=== PATIENT | male | born 1930 | race African-American/Black ===

== ENCOUNTER 2017-03-03 14:52 | Inpatient (IN) ==
--- NOTE | 2017-03-03 16:05 | Emergency Department Note ---
Arrival - Arrival Chief Complaint: Chest Pain Stated Complaint: Alot of indigestion, belching ED Nursing Triage Note: Pt was sent from dialysis for chest pain - pt states that he was he was only able to complete half of his dialysis and was sent to ER Mode of Arrival: Ambulatory Limitations: No Limitations Source: Patient Time Seen by Provider: 03/03/17 15:42 - History of Present Illness HPI Narrative: Patient is a poor historian and is difficult to get a timeline from him. He is apparently been having difficulty swallowing for a few days now. The family states he has been belching a lot and using a lot of Tums. This apparently concerned him at dialysis and he was sent here for further evaluation. He states he only occasionally has a "twinge" of pain in his throat and upper chest. His real complaint is that he is having difficulty swallowing. He says he had the same problem prior to the neck surgery he had in September. On reviewing old chart, it appears he had a neck abscess that was resected at that time. He also had mediastinitis. He has no known history of esophageal stricture. No known history of coronary disease. Allergies/Adverse Reactions: Allergies Allergy/AdvReac Type Severity Reaction Status Date / Time No Known Allergies Allergy Unverified 09/28/16 17:28 Home Medications: Home Medications Medication Instructions Recorded Confirmed Type Montelukast Tab [Singulair Tab] 10 mg PO BEDTIME 09/14/16 03/03/17 History Albuterol/Ipratropium Neb [Duoneb] 3 ml RESP TX RT Q6H nebulization 11/10/16 Rx solution Carvedilol [Coreg] 3.125 mg PO BID tablet 11/10/16 03/03/17 Rx Polyethylene Glycol 3350 17 gm PO DAILY PRN 12/01/16 03/03/17 History [Smoothlax] Calcium Carbonate Chew [Tums] 1 tablet PO TID W/MEALS 02/06/17 03/03/17 History Ranitidine Tab [Zantac Tab] 150 mg PO TID 02/06/17 03/03/17 History Terbinafine Tab [LamISIL Tab] 250 mg PO BID 02/06/17 03/03/17 History Hydrocodone/Acetaminophen [[place] 1 each PO Q6H PRN #20 tablet 02/07/17 03/03/17 Rx 7.5-325 Tablet] Review of System - Review of System 12 point system: reviewed and no additional remarkable complaints except as stated - Review of System Constitutional: Absent: fever Head/Ears/Nose/Throat: Absent: nasal drainage, sore throat Respiratory: Absent: cough, respiratory distress, wheezing Cardiovascular: Present: chest pain. Absent: palpitations, dyspnea on exertion , orthopnea, edema Gastrointestinal: Present: other (Dysphagia). Absent: nausea, vomiting Medical,Surgical,& Family Hx - Medical History Cardio: History of: CHF, CAD, Hypertension (MEDICATION), PVD, Cardiovascular Problems Neurology: History of: Cerebrovascular Accident, Dementia HEENT: History of: Eye Problem (GLASSES), Dental Problems, HEENT Problems (Neck abscess) Endocrine: History of: Diabetes Mellitus (IDDM), Dyslipidemia Rheumatology: History of;: Gout Respiratory: History of: COPD Renal: History of: Dialysis (REPLACEMENT OF AV GRAFT), Renal Failure Gastrointestinal: History of: GERD Musculoskeletal: History of: Degenerative Disk Disease, Musculoskeletal Problems - Surgical History Cardiac Surgeries: Sugical HX of: Cardiac Catheterization HEENT Surgeries: Surgical HX of: Eye Surgery (cataract surgery left and right eye) Abdominal Surgeries: Surgical HX of: Colonoscopy, EGD Additional Surgical History: Resection of neck abscess - Family History Family History: Reports;: Family Diabetes, Family Heart Disease, Family Stroke - Social History Smoking Status: Never smoker Frequency of Alcohol Use: None Type of Drug Use: None Exam Physical Examination: GENERAL: Alert. No acute distress. HEENT: Normocephalic and atraumatic. There is no nasal drainage. No pharyngeal erythema or exudate. NECK: Normal inspection. Well-healed surgical scar on the left neck. No tenderness. Full range of motion. No adenopathy or mass appreciated. LUNGS: No respiratory distress. Clear to auscultation bilaterally, no wheezes, rales or rhonchi. HEART: Regular rate and rhythm. ABDOMEN: Soft, nontender and nondistended with normoactive bowel sounds. BACK: Normal inspection. SKIN: Color normal. Warm and dry. EXTREMITIES: Nontender. Normal range of motion. No pedal edema. NEUROLOGICAL/PSYCHIATRIC: Alert and oriented -3 with normal mood and affect. Cranial nerves normal. No motor or sensory deficit. Vital Signs: Vital Signs Temperature 98.1 F 03/03/17 16:19 Pulse Rate 89 03/03/17 16:19 Respiratory Rate 20 03/03/17 16:19 Blood Pressure 135/64 03/03/17 16:19 O2 Sat by Pulse Oximetry 99 03/03/17 15:11 Course - Reevaluation(s) Reevaluation #1: CT of the soft tissue of the neck shows osteomyelitis and worsening degeneration at the left sternoclavicular joint. There is no abscess or mass at this time. I think the osteomyelitis and inflammation are what is causing his pain and difficulty on swallowing. His troponin is slightly elevated, however, it has been elevated in the past as is commonly seen in dialysis patients. I have discussed the patient with the hospitalist service who will see him and admit. Time: 17:40 Results - Labs CBC & BMP: 03/03/17 16:19 03/03/17 16:19 Lab Results: I have reviewed the patients labs Labs: Laboratory Tests 03/03/17 16:19 Total Bilirubin 0.40 AST 19 ALT 12 L Alkaline Phosphatase 118 H Total Creatine Kinase 73 CK-MB (CK-2) 2.5 Troponin I 0.231 H - Impressions CT of the soft tissue the neck shows Marked improvement of the prior left neck abscess however there are worse sequela of osteomyelitis and joint infection at the left sternoclavicular joint. It is uncertain whether this is related to sequelae of chronic osteomyelitis or a persistent active osteomyelitis. Chest x-ray shows cardiomegaly. No CHF. Disposition Clinical Impression: Chest pain, Osteomyelitis, Dysphagia, ESRD (end stage renal disease) on dialysis Case discussed with: patient, patient's family Disposition: Still a Patient Condition: Stable Time of Disposition: 17:43
[2017-03-03 16:21] LABS: Basophils # 0.1 10*3/uL (0.0-0.2); Basophils % 1.1 % (0.0-0.8); Eosinophils # 0.1 10*3/uL (0.0-0.87); Eosinophils % 1.8 % (0.00-10.9); Hematocrit 38.6 VOL% (42.0-52.0); Hemoglobin 12.3 GM/DL (14.0-18.0); Immature Granulocytes % 0.2 %; Immature Granulocytes Absolute 0.01 #; Lymphocytes # 1.6 10*3/uL (1.4-4.0); Lymphocytes % 29.8 % (21.2-54.2); Mean Corpuscular HGB Conc 31.9 GM/DL (32-36); Mean Corpuscular Hemoglobin 32 PG (27-34); Mean Corpuscular Volume 100.5 FL (87-102); Mean Platelet Volume 11.4 FL (9.6-12.0); Monocytes # 0.8 10*3/uL (0.11-0.8); Monocytes % 15.2 % (1.7-12.7); Neutrophils # 2.8 10*3/uL (1.4-7.4); Neutrophils % 51.9 % (38.7-73.9); Platelet Count 189 T/CUMM (130-400); Red Blood Count 3.84 MC/CUMM (3.8-5.5); Red Cell Distribution Width 16.2 % (9.3-17.3); White Blood Count 5.5 T/CUMM (4-12)
--- NOTE | 2017-03-03 16:42 | XRay Report ---
History is chest pain Comparison 12/12/2016 The heart is enlarged. Mediastinal contour is unchanged No new infiltrates are seen Impression: Cardiomegaly without CHF PROCEDURE INTERPRETED AT [facility] DEPARTMENT OF RADIOLOGY Final Report Signed by: Dr. Faustina Ho
[2017-03-03 16:55] LABS: Alanine Aminotransferase 12 U/L (16-61); Albumin 3.4 G/DL (3.4-5.0); Alkaline Phosphatase 118 U/L (45-117); Aspartate Amino Transferase 19 U/L (0-37); Blood Urea Nitrogen 15 MG/DL (7-18); Calcium 9.4 MG/DL (8.5-10.1); Glucose 180 MG/DL (74-106); Osmolality,Calculated 282.5 MOS/KG (273-304); Potassium 3.9 MMOL/L (3.5-5.1); Sodium 139 MMOL/L (136-145); Total Protein 7.2 G/DL (6.4-8.3)
[2017-03-03 16:56] LABS: Troponin I Only 0.231 NG/ML (0.00-0.045)
--- NOTE | 2017-03-03 17:07 | CT Report ---
History is dysphasia prior neck abscess 80 cc Omni 350 utilized Comparison 11/05/2016 There is been marked improvement of prior left neck abscess. There remains soft tissue thickening and stranding surrounding fat at sternoclavicular joint on the left where there is also displacement of sternal clavicular joint with erosions and sclerosis and fragmentation on both sides of the joint which is worse than on the prior study. No enlarged cervical nodes seen. Tiny thyroid cysts present. Impression: 1. Marked improvement of the prior left neck abscess however there are worse sequela of osteomyelitis and joint infection at the left sternoclavicular joint. It is uncertain whether this is related to sequelae of chronic osteomyelitis or a persistent active osteomyelitis. The CT exam was performed using one or more of the following dose reduction techniques: Automated exposure control, adjustment of the mA and/or kV according to patient size, or use of iterative reconstruction technique. PROCEDURE INTERPRETED AT [facility] DEPARTMENT OF RADIOLOGY Final Report Signed by: Dr. Faustina Ho
[2017-03-03 18:59] LABS: PT Patient Result 11.1 SECS
[2017-03-03 19:08] LABS: Partial Thromboplastin Time 44.8 SECS (0-40)
--- NOTE | 2017-03-03 19:47 | Hospitalist History & Physical ---
Assessment and Plan (1) Osteomyelitis Status: Acute Assessment and plan: Previous history of abscess CT neck with improvement of abscess but with acute vs chronic osteo Pt hemodynamically stable, afebrile with no leukocytosis Will not start antibiotics tonight Consult Dr. Harrison Obtain ESR, CRP and blood cultures Low threshold for initiation of antibiotics, but would like for surgery to evaluate first Current Visit: Yes (2) ESRD (end stage renal disease) on dialysis Status: Chronic Assessment and plan: TTS schedule Consult nephrology Current Visit: Yes (3) Diabetes mellitus Status: Chronic Assessment and plan: SSI for now Current Visit: No Qualifiers: Diabetes mellitus type: type 2 Diabetes mellitus complication status: with kidney complications Diabetes mellitus complication detail: with chronic kidney disease Chronic kidney disease stage: stage 5, not on chronic dialysis History of Present Illness Chief complaint: throat problems History of present illness: Mr. Carlson is a 86 year old male with ESRD and recent hx of left neck abscess s /p I&D 11/07/16 who presents with throat problems. Patient is a poor historian, his son is present and provides some of the history. The patient denies throat pain or difficulty swallowing to me. His son reports that patient has been belching a great deal and having problems swallowing his Tums. Today in HD, patient noted to have excessive belching and was sent here. He only completed half of his HD session. In the ED, CT neck with acute vs chronic osteomyelitis of the left sternoclavicular joint with marked improvement of the prior left neck abscess. He denies fever or chills. He is being admitted to the hospitalist service for further evaluation. Home Medications Medication Instructions Recorded Confirmed Type Montelukast Tab [Singulair Tab] 10 mg PO BEDTIME 09/14/16 03/03/17 History Albuterol/Ipratropium Neb [Duoneb] 3 ml RESP TX RT Q6H nebulization 11/10/16 Rx solution Carvedilol [Coreg] 3.125 mg PO BID tablet 11/10/16 03/03/17 Rx Polyethylene Glycol 3350 17 gm PO DAILY PRN 12/01/16 03/03/17 History [Smoothlax] Calcium Carbonate Chew [Tums] 1 tablet PO TID W/MEALS 02/06/17 03/03/17 History Ranitidine Tab [Zantac Tab] 150 mg PO TID 02/06/17 03/03/17 History Terbinafine Tab [LamISIL Tab] 250 mg PO BID 02/06/17 03/03/17 History Hydrocodone/Acetaminophen [[place] 1 each PO Q6H PRN #20 tablet 02/07/17 03/03/17 Rx 7.5-325 Tablet] Allergies Allergy/AdvReac Type Severity Reaction Status Date / Time No Known Allergies Allergy Unverified 09/28/16 17:28 Medical,Surgical,& Family Hx - Medical History Cardio: History of: CHF, CAD, Hypertension (MEDICATION), PVD, Cardiovascular Problems Neurology: History of: Cerebrovascular Accident, Dementia No history of: Seizures HEENT: History of: Eye Problem (GLASSES), Dental Problems, HEENT Problems (Neck abscess) Endocrine: History of: Diabetes Mellitus (IDDM), Dyslipidemia Rheumatology: History of;: Gout Respiratory: History of: COPD Renal: History of: Dialysis (REPLACEMENT OF AV GRAFT), Renal Failure Gastrointestinal: History of: GERD Musculoskeletal: History of: Degenerative Disk Disease, Musculoskeletal Problems - Surgical History Cardiac Surgeries: Sugical HX of: Cardiac Catheterization HEENT Surgeries: Surgical HX of: Eye Surgery (cataract surgery left and right eye) Abdominal Surgeries: Surgical HX of: Colonoscopy, EGD - Family History Family History: Reports;: Family Diabetes, Family Heart Disease, Family Stroke - Social History Smoking Status: Never smoker Frequency of Alcohol Use: None Type of Drug Use: None - Constitutional Constitutional: Absent: chills, fever(s) - EENT Eyes: Absent: blurry vision, loss of vision Ears: Absent: decreased hearing, ear pain Nose, mouth and throat: Absent: hoarseness, throat swelling - Cardiovascular Cardiovascular: Absent: chest pain at rest, dyspnea - Respiratory Respiratory: Absent: cough, wheezing - Gastrointestinal Gastrointestinal: Absent: abdominal pain, nausea - Genitourinary Genitourinary: Absent: difficulty urinating, urinary frequency - Musculoskeletal Musculoskeletal: Absent: joint swelling, muscle cramps - Neurological Neurological: Absent: dizziness, focal weakness - Psychiatric Psychiatric: Absent: anxiety, depression - Endocrine Endocrine: Absent: cold intolerance, heat intolerance - Hematologic/Lymphatic Hematologic/Lymphatic: Absent: easy bleeding, easy bruising Exam - Constitutional Vitals: Period Temp Pulse Resp BP Sys/[place] Pulse Ox Last 24 Hr 98.1 F-98.1 F 77-89 18-20 135-149/64-72 99-100 General appearance: normal weight - Head Head exam: Present: normocephalic, atraumatic - Eye Eye exam: Present: EOMI Pupils: Present: LOPEZ - ENT ENT exam: Present: normal exam - Neck Neck exam: Present: normal inspection. Absent: tenderness - Respiratory Respiratory exam: Present: clear to auscultation bilaterally. Absent: rhonchi, wheezes - Cardiovascular Cardiovascular exam: Present: regular rate and rhythm - GI/Abdominal GI/Abdominal exam: Present: normal bowel sounds, soft. Absent: tenderness, rebound - Extremities Exam Extremities exam: Present: normal inspection - Back Exam Back exam: Present: normal inspection - Neurological Exam Neurological exam: Present: alert, oriented X3 - Psychiatric Psychiatric exam: Present: normal affect, normal mood - Skin Skin exam: Present: warm, intact Results - Labs CBC & BMP: 03/03/17 16:19 03/03/17 16:19
[2017-03-03] MEDS ORDERED: GLUCAGON 1 MG VIAL IM PRN (20:13)
[2017-03-03] MEDS ORDERED: POLYETHYLENE GLYCOL POWDER 255 GM BOTTLE PO PRN (20:13)
[2017-03-03] MEDS ORDERED: ACETAMINOPHEN 325 MG TABLET PO PRN (20:13)
[2017-03-03] MEDS ORDERED: DEXTROSE 50% 25 GM/50 ML VIAL IV PRN (20:13)
[2017-03-03] MEDS ORDERED: LACTULOSE 20 GM/30 ML UDCUP PO PRN (20:13)
[2017-03-03] MEDS ORDERED: DOCUSATE SODIUM 100 MG CAPSULE PO PRN (20:13)
[2017-03-03] MEDS ORDERED: POLYETHYLENE GLYCOL POWDER 17 GM PACK PO PRN (20:30)
[2017-03-03] MEDS: ENOXAPARIN 30 MG/0.3 ML SYRINGE SUBCUT SCH (21:11)
[2017-03-03] MEDS: INSULIN LISPRO 100 UNIT/ML SUBCUT SCH (21:11)
[2017-03-03] MEDS: SODIUM CHLORIDE 0.9% 1,000 ML IV SCH (21:14)
[2017-03-03] MEDS: MONTELUKAST 10 MG TABLET PO SCH (21:15)
[2017-03-03] MEDS: CARVEDILOL 3.125 MG TABLET PO SCH (21:15)
[2017-03-04 00:47] LABS: Basophils % 1.1 % (0.0-0.8); Eosinophils # 0.1 10*3/uL (0.0-0.87); Eosinophils % 2.4 % (0.00-10.9); Hematocrit 32.9 VOL% (42.0-52.0); Hemoglobin 10.8 GM/DL (14.0-18.0); Immature Granulocytes % 0.5 %; Immature Granulocytes Absolute 0.02 #; Lymphocytes # 1.4 10*3/uL (1.4-4.0); Lymphocytes % 35.9 % (21.2-54.2); Mean Corpuscular HGB Conc 32.8 GM/DL (32-36); Mean Corpuscular Hemoglobin 32 PG (27-34); Mean Corpuscular Volume 97.9 FL (87-102); Mean Platelet Volume 11.3 FL (9.6-12.0); Monocytes # 0.7 10*3/uL (0.11-0.8); Monocytes % 18.4 % (1.7-12.7); Neutrophils # 1.6 10*3/uL (1.4-7.4); Neutrophils % 41.7 % (38.7-73.9); Platelet Count 169 T/CUMM (130-400); Red Blood Count 3.36 MC/CUMM (3.8-5.5); Red Cell Distribution Width 15.9 % (9.3-17.3); White Blood Count 3.8 T/CUMM (4-12)
[2017-03-04 02:13] LABS: Eosinophils 4 % (0-10); Lymphocytes 31 % (20-55); Platelet Estimate Normal; Segmented Neutrophils 45 % (50-85); Total Cells Counted 100
[2017-03-04 06:16] LABS: Basophils % 1.1 % (0.0-0.8); Eosinophils # 0.1 10*3/uL (0.0-0.87); Eosinophils % 2.6 % (0.00-10.9); Hematocrit 33.6 VOL% (42.0-52.0); Hemoglobin 10.9 GM/DL (14.0-18.0); Lymphocytes # 1.3 10*3/uL (1.4-4.0); Lymphocytes % 35.8 % (21.2-54.2); Mean Corpuscular HGB Conc 32.4 GM/DL (32-36); Mean Corpuscular Hemoglobin 32 PG (27-34); Mean Corpuscular Volume 98.2 FL (87-102); Mean Platelet Volume 10.9 FL (9.6-12.0); Monocytes # 0.5 10*3/uL (0.11-0.8); Monocytes % 14.6 % (1.7-12.7); Neutrophils # 1.6 10*3/uL (1.4-7.4); Neutrophils % 45.9 % (38.7-73.9); Platelet Count 167 T/CUMM (130-400); Red Blood Count 3.42 MC/CUMM (3.8-5.5); Red Cell Distribution Width 16.4 % (9.3-17.3); White Blood Count 3.5 T/CUMM (4-12)
[2017-03-04] MEDS: SODIUM CHLORIDE 0.9% 1,000 ML IV SCH (06:55)
[2017-03-04] MEDS: ALBUTEROL/IPRATROPIUM 3 ML NEB RESP TX SCH ×4 (07:07→19:37)
[2017-03-04 07:11] LABS: Blood Urea Nitrogen 17 MG/DL (7-18); Calcium 8.8 MG/DL (8.5-10.1); Glucose 134 MG/DL (74-106); Osmolality,Calculated 282.4 MOS/KG (273-304); Potassium 3.8 MMOL/L (3.5-5.1); Sodium 140 MMOL/L (136-145)
[2017-03-04 07:55] LABS: Sedimentation Rate-Westergren 42 MM/HR (0-20)
[2017-03-04] MEDS: INSULIN LISPRO 100 UNIT/ML SUBCUT SCH ×4 (09:06→20:28)
[2017-03-04] MEDS: CARVEDILOL 3.125 MG TABLET PO SCH ×2 (09:07→20:26)
[2017-03-04] MEDS: PANTOPRAZOLE 40 MG TABLET PO SCH (09:07)
[2017-03-04] MEDS ORDERED: VANCOMYCIN INJ 750 MG in SODIUM CHLORIDE 0.9% 250 ML IV PRN (09:42)
--- NOTE | 2017-03-04 09:47 | EKG Report ---
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
[2017-03-04] MEDS ORDERED: VANCOMYCIN INJ 1,000 MG in SODIUM CHLORIDE 0.9% 250 ML IV ONE (10:00)
--- NOTE | 2017-03-04 10:35 | Nephrology Consult Note ---
History of Present Illness Chief complaint: End-stage renal disease in a patient admitted with dysphasia History of present illness: Mr. Carlson is a 86 year old male with end-stage renal disease who dialyzes on a regular basis and [place]. The patient was admitted for evaluation of dysphasia. Apparently the patient was dialyzing recently when he became choked up and had difficulty breathing. The patient states he has had some trouble swallowing food and liquids the past couple of weeks. The patient recently had a fistula/graft placed in his left arm about 3 weeks ago the patient did have to be put to sleep for this. The patient has a history of a neck abscess in the past that had to be incised and drained and left open for several weeks. The patient had a CT scan done yesterday that revealed some changes consistent with osteomyelitis changes. The patient denies any fever or chills. He denies any pain. ROS: Head - denies headaches ENT - denies sore throat Lymphatics - denies lymphadenopathy Hematology - denies bleeding problems Heart - denies chest pain Lungs - denies shortness of breath Abdomen - denies abdominal pain Musculoskeletal - denies arthritis Skin - denies rash Neurology - denies stroke General - denies fever PE: General: in no acute distress Eyes: Pupils are round and reactive, conjunctivae are clear ENT: Nose is clear, O/P is benign Neck: Supple, no thyromegaly Lymphatics: No cervical, supraclavicular or axillary adenopathy Heart: Regular rate and rhythm, no edema Lungs: Clear to auscultation anteriorly, chest expansion symmetric Abdomen: Soft, normoactive bowel sounds, no hepatomegaly Musculoskeletal: No joint erythema or effusions or joint asymmetry Skin: Normal turgor, normal hydration, no rash Neuro/Psych: Alert and cooperative with fair insight Home Medications Medication Instructions Recorded Confirmed Type Montelukast Tab [Singulair Tab] 10 mg PO BEDTIME 09/14/16 03/03/17 History Albuterol/Ipratropium Neb [Duoneb] 3 ml RESP TX RT Q6H nebulization 11/10/16 Rx solution Carvedilol [Coreg] 3.125 mg PO BID tablet 11/10/16 03/03/17 Rx Polyethylene Glycol 3350 17 gm PO DAILY PRN 12/01/16 03/03/17 History [Smoothlax] Calcium Carbonate Chew [Tums] 1 tablet PO TID W/MEALS 02/06/17 03/03/17 History Ranitidine Tab [Zantac Tab] 150 mg PO TID 02/06/17 03/03/17 History Terbinafine Tab [LamISIL Tab] 250 mg PO BID 02/06/17 03/03/17 History Hydrocodone/Acetaminophen [[place] 1 each PO Q6H PRN #20 tablet 02/07/17 03/03/17 Rx 7.5-325 Tablet] Allergies Allergy/AdvReac Type Severity Reaction Status Date / Time No Known Allergies Allergy Unverified 09/28/16 17:28 Medical,Surgical,& Family Hx - Medical History Cardio: History of: CHF, CAD, Hypertension (MEDICATION), PVD, Cardiovascular Problems Neurology: History of: Cerebrovascular Accident, Dementia No history of: Seizures HEENT: History of: Eye Problem (GLASSES), Dental Problems, HEENT Problems (Neck abscess) Endocrine: History of: Diabetes Mellitus (IDDM), Dyslipidemia Rheumatology: History of;: Gout Respiratory: History of: COPD Renal: History of: Dialysis (REPLACEMENT OF AV GRAFT), Renal Failure Gastrointestinal: History of: GERD Musculoskeletal: History of: Degenerative Disk Disease, Musculoskeletal Problems - Surgical History Cardiac Surgeries: Sugical HX of: Cardiac Catheterization HEENT Surgeries: Surgical HX of: Eye Surgery (cataract surgery left and right eye) Abdominal Surgeries: Surgical HX of: Colonoscopy, EGD - Family History Family History: Reports;: Family Diabetes, Family Heart Disease, Family Stroke - Social History Smoking Status: Never smoker Frequency of Alcohol Use: None Type of Drug Use: None Exam - Vital Signs Vital signs: Period Temp Pulse Resp BP Sys/[place] Pulse Ox Last 24 Hr 97.3 F-98.1 F 69-108 16-20 104-150/48-77 92-100 Results - Labs CBC & BMP: 03/04/17 05:58 03/04/17 05:58 Assessment and Plan (1) Dysphagia Status: Acute Assessment and plan: Patient has developed some swallowing difficulty in the past couple of weeks as well as some choking. Most recently had this happen during his dialysis treatment. The patient did have a recent endotracheal intubation about 3 weeks ago for a graft placement in his left arm. I think it would be appropriate to involve ENT and probably gastrointestinal medicine as well. Current Visit: Yes (2) ESRD (end stage renal disease) on dialysis Status: Chronic Assessment and plan: We will plan on continued HD support Current Visit: Yes (3) Anemia Status: Acute Assessment and plan: Patient's hematocrit stable around 33% Current Visit: No (4) Diabetes mellitus with ESRD (end-stage renal disease) Problem details: Uremic symptoms of asterixis. Status: Acute Assessment and plan: I am going to start him on a D10W at 50 cc an hour to give him some caloric input. Patient has been unable to take in very much lately due to his dysphasia. Current Visit: No
[2017-03-04] MEDS: DEXTROSE 10% 1,000 ML IV SCH (12:33)
--- NOTE | 2017-03-04 14:36 | Hospitalist Progress Note ---
Assessment and Plan - Time spent with patient Time spent with patient: Greater than 30 minutes (1) Dysphagia Status: Acute Assessment and plan: Consult GI. Current Visit: Yes (2) Osteomyelitis Status: Acute Assessment and plan: Start vancomycin given his prior abscess was MRSA. Consult infectious disease. Blood cultures pending. Current Visit: Yes (3) ESRD (end stage renal disease) on dialysis Status: Chronic Assessment and plan: Nephrology involved. Current Visit: Yes (4) Diabetes mellitus with ESRD (end-stage renal disease) Problem details: Uremic symptoms of asterixis. Status: Acute Assessment and plan: Continue current management. Current Visit: No Hospitalist: Subjective Interval history: Mr. Carlson reports no problems to me. Apparently he was admitted for dysphasia. CT of his chest revealed osteomyelitis. No overnight events. Exam - Constitutional Vitals: Period Temp Pulse Resp BP Sys/[place] Pulse Ox Last 24 Hr 97.3 F-98.1 F 64-108 16-20 104-150/48-77 92-100 General appearance: no acute distress - Head Head exam: Present: normocephalic, atraumatic - Eye Eye exam: Present: EOMI Pupils: Present: LOPEZ - ENT ENT exam: Present: normal exam - Neck Neck exam: Present: normal inspection - Respiratory Respiratory exam: Present: clear to auscultation bilaterally. Absent: rhonchi, wheezes - Cardiovascular Cardiovascular exam: Present: regular rate and rhythm. Absent: gallop, rubs, systolic murmur - GI/Abdominal GI/Abdominal exam: Present: normal bowel sounds, soft. Absent: distended, firm , guarding, tenderness, rebound - Extremities Exam Extremities exam: Present: normal inspection. Absent: calf tenderness, edema Results - Labs CBC & BMP: 03/04/17 05:58 03/04/17 05:58 Lab Results: I have reviewed the past 24 hour labs
[2017-03-04] MEDS ORDERED: VANCOMYCIN INJ 500 MG in SODIUM CHLORIDE 0.9% 100 ML IV PRN (16:00)
[2017-03-04] MEDS: MONTELUKAST 10 MG TABLET PO SCH (20:26)
[2017-03-04] MEDS: ENOXAPARIN 30 MG/0.3 ML SYRINGE SUBCUT SCH (20:29)
[2017-03-05] MEDS: ALBUTEROL/IPRATROPIUM 3 ML NEB RESP TX SCH ×4 (00:34→20:53)
[2017-03-05 06:30] LABS: Basophils % 1.1 % (0.0-0.8); Eosinophils # 0.1 10*3/uL (0.0-0.87); Eosinophils % 3.2 % (0.00-10.9); Hematocrit 34.3 VOL% (42.0-52.0); Immature Granulocytes % 0.3 %; Immature Granulocytes Absolute 0.01 #; Lymphocytes # 1.4 10*3/uL (1.4-4.0); Lymphocytes % 37.5 % (21.2-54.2); Mean Corpuscular HGB Conc 32.1 GM/DL (32-36); Mean Corpuscular Hemoglobin 32 PG (27-34); Mean Corpuscular Volume 99.7 FL (87-102); Mean Platelet Volume 11.3 FL (9.6-12.0); Monocytes # 0.6 10*3/uL (0.11-0.8); Monocytes % 15.3 % (1.7-12.7); Neutrophils # 1.6 10*3/uL (1.4-7.4); Neutrophils % 42.6 % (38.7-73.9); Platelet Count 170 T/CUMM (130-400); Red Blood Count 3.44 MC/CUMM (3.8-5.5); Red Cell Distribution Width 16.4 % (9.3-17.3); White Blood Count 3.8 T/CUMM (4-12)
[2017-03-05 06:58] LABS: Calcium 8.4 MG/DL (8.5-10.1); Osmolality,Calculated 280.7 MOS/KG (273-304); Potassium 3.6 MMOL/L (3.5-5.1)
--- NOTE | 2017-03-05 08:04 | Consultation ---
Assessment and Plan - Time spent with patient Time spent with patient: Less than 30 minutes (1) Dysphagia Status: Acute Assessment and plan: Bedside laryngoscopy reveals no masses or lesions and a slow nonforceful swallow a bedside fees was not performed that did not have the capability at that time but based on his history of a prolonged period of not eating because of the PEG tube and his prolonged hospitalization along with having a neck procedure is most likely a coordination a musculoskeletal issue in which case swallow therapy with e-stim should help improve or resolve the majority if not all of his dysphagia. I will consult speech and swallow therapy and have them began treatment on him. Thank you very much for this consult I will follow this patient intermittently throughout his stay I will be gone later today and tomorrow but will be back Sunday if there is any questions or concerns please do not hesitate to ask additionally Dr. Issa will be covering me while I am gone Current Visit: No Qualifiers: Dysphagia type: oropharyngeal phase Qualified Code(s): R13.12 - Dysphagia, oropharyngeal phase (2) Reflux laryngitis Status: Acute Current Visit: Yes History of Present Illness - Data of Consult Patient: new to practice Consult date: 03/05/17 Requesting Physician: Marty Smyth - Consult Narrative Reason for consult: Dysphasia History of present illness: Mr. Carlson is a 86 year old male with multiple medical comorbidities and current currently being treated for his end-stage renal disease he had previously been and admitted for a extended period of time where he had a neck abscess with mediastinitis that a joint case with Dr. Heribreto Montero and I performed where the sternocleidomastoid was removed and multiple irrigations and secondary wound healing of his neck. At that time he had a PEG tube subsequently this is been removed and he has had more more difficulty with swallowing and ENT is consulted to evaluate. He notes difficulty with swallowing with several different foods and drinks nothing seems to make it better or worse CC: Radha Elizabeth MD - Home Medications and Allergies Home Medications: Home Medications Medication Instructions Recorded Confirmed Type Montelukast Tab [Singulair Tab] 10 mg PO BEDTIME 09/14/16 03/03/17 History Albuterol/Ipratropium Neb [Duoneb] 3 ml RESP TX RT Q6H nebulization 11/10/16 Rx solution Carvedilol [Coreg] 3.125 mg PO BID tablet 11/10/16 03/03/17 Rx Polyethylene Glycol 3350 17 gm PO DAILY PRN 12/01/16 03/03/17 History [Smoothlax] Calcium Carbonate Chew [Tums] 1 tablet PO TID W/MEALS 02/06/17 03/03/17 History Ranitidine Tab [Zantac Tab] 150 mg PO TID 02/06/17 03/03/17 History Terbinafine Tab [LamISIL Tab] 250 mg PO BID 02/06/17 03/03/17 History Hydrocodone/Acetaminophen [[place] 1 each PO Q6H PRN #20 tablet 02/07/17 03/03/17 Rx 7.5-325 Tablet] Allergies/Adverse Reactions: Allergies Allergy/AdvReac Type Severity Reaction Status Date / Time No Known Allergies Allergy Unverified 09/28/16 17:28 12 point system: reviewed and no additional remarkable complaints except as stated Medical,Surgical,& Family Hx - Medical History Cardio: History of: CHF, CAD, Hypertension (MEDICATION), PVD, Cardiovascular Problems Neurology: History of: Cerebrovascular Accident, Dementia No history of: Seizures HEENT: History of: Eye Problem (GLASSES), Dental Problems, HEENT Problems (Neck abscess) Endocrine: History of: Diabetes Mellitus (IDDM), Dyslipidemia Rheumatology: History of;: Gout Respiratory: History of: COPD Renal: History of: Dialysis (REPLACEMENT OF AV GRAFT), Renal Failure Gastrointestinal: History of: GERD Musculoskeletal: History of: Degenerative Disk Disease, Musculoskeletal Problems - Surgical History Cardiac Surgeries: Sugical HX of: Cardiac Catheterization HEENT Surgeries: Surgical HX of: Eye Surgery (cataract surgery left and right eye) Abdominal Surgeries: Surgical HX of: Colonoscopy, EGD - Family History Family History: Reports;: Family Diabetes, Family Heart Disease, Family Stroke - Social History Smoking Status: Never smoker Frequency of Alcohol Use: None Type of Drug Use: None Exam - Constitutional Vitals: Period Temp Pulse Resp BP Sys/[place] Pulse Ox Last 24 Hr 97.4 F-98.8 F 56-92 16-19 115-144/58-69 92-100 General appearance: normal weight, no acute distress - Head Head exam: Present: normal inspection, normocephalic - Eye Eye exam: Present: EOMI Pupils: Present: LOPEZ - ENT ENT exam: Present: normal exam, normal external ear exam, normal oropharynx, other (Bedside laryngoscopy performed revealing a normally functioning larynx with some interarytenoid edema consistent with probable reflux disease.) - Neck Neck exam: Present: other (Well-healing neck incision from previous neck abscess incision and drainage with removal of SCM.) - Respiratory Respiratory exam: Present: other (No shortness of breath or difficulty breathing ) - GI/Abdominal GI/Abdominal exam: Present: soft (No PEG tube present per nursing staff) - Neurological Exam Neurological exam: Present: alert, oriented X3, CN II-XII intact - Psychiatric Psychiatric exam: Present: normal affect, normal mood - Skin Skin exam: Present: normal color, warm Results - Labs CBC & BMP: 03/05/17 04:31 03/05/17 04:31 Lab Results: I have reviewed the past 24 hour labs
[2017-03-05] MEDS: DEXTROSE 10% 1,000 ML IV SCH ×2 (08:09→11:45)
[2017-03-05] MEDS: CARVEDILOL 3.125 MG TABLET PO SCH ×2 (08:15→21:52)
[2017-03-05] MEDS: PANTOPRAZOLE 40 MG TABLET PO SCH (08:16)
[2017-03-05] MEDS: INSULIN LISPRO 100 UNIT/ML SUBCUT SCH ×4 (08:18→21:45)
--- NOTE | 2017-03-05 10:51 | Hospitalist Progress Note ---
Assessment and Plan - Time spent with patient Time spent with patient: Greater than 30 minutes (1) Dysphagia Status: Acute Assessment and plan: Gi consult pending. Evaluated by ENT. Current Visit: Yes (2) Osteomyelitis Status: Acute Assessment and plan: Continue vancomycin; prior abscess was MRSA. Consult infectious disease. Blood cultures pending. Current Visit: Yes (3) ESRD (end stage renal disease) on dialysis Status: Chronic Assessment and plan: Nephrology involved. Current Visit: Yes (4) Diabetes mellitus with ESRD (end-stage renal disease) Problem details: Uremic symptoms of asterixis. Status: Acute Assessment and plan: Continue current management. Current Visit: No Hospitalist: Subjective Interval history: No complaints or overnight events. Exam - Constitutional Vitals: Period Temp Pulse Resp BP Sys/[place] Pulse Ox Last 24 Hr 97.4 F-98.8 F 56-92 16-19 115-144/58-69 92-100 General appearance: no acute distress - Head Head exam: Present: normocephalic, atraumatic - Eye Eye exam: Present: EOMI Pupils: Present: LOPEZ - ENT ENT exam: Present: normal exam - Neck Neck exam: Present: normal inspection - Respiratory Respiratory exam: Present: clear to auscultation bilaterally. Absent: rhonchi, wheezes - Cardiovascular Cardiovascular exam: Present: regular rate and rhythm. Absent: gallop, rubs, systolic murmur - GI/Abdominal GI/Abdominal exam: Present: normal bowel sounds, soft. Absent: distended, firm , guarding, tenderness, rebound - Extremities Exam Extremities exam: Present: normal inspection. Absent: calf tenderness, edema Results - Labs CBC & BMP: 03/05/17 04:31 03/05/17 04:31 Lab Results: I have reviewed the past 24 hour labs
--- NOTE | 2017-03-05 12:26 | Gastrointestinal Consult Note ---
Assessment and Plan (1) Dysphagia Status: Acute Assessment and plan: 12-Hx of dysphagia following neck abscess and PEG tube placement in Sep this year. PEG removed and pt now with returning dysphagia to solids, pills, and liquids, reported failed ST evaluation, report still pending.. 30 pd wt loss x 4 months. Laryngoscopy w/o findings of masses/lesions. Plan and addendum to follow by Dr Tavares. Current Visit: Yes History of Present Illness Chief complaint: Dysphagia History of present illness: Mr. Carlson is a 86 year old male who was admitted to the hospital 2 days ago with complaints of difficulty swallowing. Patient is a poor historian and family at bedside is unable to provide detailed information. Information is also obtained from chart review. Patient has a history of diabetes mellitus, end-stage renal disease (dialyzed on Sunday, , Sunday), and osteomyelitis as diagnosed by neck CT. Patient has a history of protracted inpatient stay and September of this year after admission for dysphagia and abdominal pain as well as development of left neck abscess in which he underwent an I&D at that time as well as resection of the sternal head and debridement of necrotizing fasciitis. During that hospital stay, he had a PEG tube placed for continued dysphagia which also had to be replaced again in October after the PEG tube was pulled out. Following this discharge, patient had inpatient stay at [facility] for continued rehab and was discharged home. Patient states is returning home, he was initially doing better and able to have the PEG tube removed and resume eating. Pt is noted since discharge in Oct to have lost 30 pounds. He states that when he eats, the food becomes stuck in the back of his throat and he has to regurgitate to dislodge this. He denies any pain with swallowing. He states that he has difficulty with pills and solids as well as liquids at times. He denies any abdominal pain. Denies any melena or hematochezia. Denies any fever or chills. ENT has been consulted and bedside laryngoscopy without findings of masses or lesions with recommendations of ST with e-stim. ST eval report is still pending at this time. Home Medications Medication Instructions Recorded Confirmed Type Montelukast Tab [Singulair Tab] 10 mg PO BEDTIME 09/14/16 03/03/17 History Albuterol/Ipratropium Neb [Duoneb] 3 ml RESP TX RT Q6H nebulization 11/10/16 Rx solution Carvedilol [Coreg] 3.125 mg PO BID tablet 11/10/16 03/03/17 Rx Polyethylene Glycol 3350 17 gm PO DAILY PRN 12/01/16 03/03/17 History [Smoothlax] Calcium Carbonate Chew [Tums] 1 tablet PO TID W/MEALS 02/06/17 03/03/17 History Ranitidine Tab [Zantac Tab] 150 mg PO TID 02/06/17 03/03/17 History Terbinafine Tab [LamISIL Tab] 250 mg PO BID 02/06/17 03/03/17 History Hydrocodone/Acetaminophen [[place] 1 each PO Q6H PRN #20 tablet 02/07/17 03/03/17 Rx 7.5-325 Tablet] Allergies Allergy/AdvReac Type Severity Reaction Status Date / Time No Known Allergies Allergy Unverified 09/28/16 17:28 Medical,Surgical,& Family Hx - Medical History Cardio: History of: CHF, CAD, Hypertension (MEDICATION), PVD, Cardiovascular Problems Neurology: History of: Cerebrovascular Accident, Dementia No history of: Seizures HEENT: History of: Eye Problem (GLASSES), Dental Problems, HEENT Problems (Neck abscess) Endocrine: History of: Diabetes Mellitus (IDDM), Dyslipidemia Rheumatology: History of;: Gout Respiratory: History of: COPD Renal: History of: Dialysis (REPLACEMENT OF AV GRAFT), Renal Failure Gastrointestinal: History of: GERD Musculoskeletal: History of: Degenerative Disk Disease, Musculoskeletal Problems - Surgical History Cardiac Surgeries: Sugical HX of: Cardiac Catheterization HEENT Surgeries: Surgical HX of: Eye Surgery (cataract surgery left and right eye) Abdominal Surgeries: Surgical HX of: Colonoscopy, EGD - Family History Family History: Reports;: Family Diabetes, Family Heart Disease, Family Stroke - Social History Smoking Status: Never smoker Frequency of Alcohol Use: None Type of Drug Use: None 12 point system: reviewed and no additional remarkable complaints except as stated - Constitutional Constitutional: Present: as per HPI - EENT Eyes: Present: as per HPI Ears: Present: as per HPI Nose, mouth and throat: Present: as per HPI, dysphagia - Cardiovascular Cardiovascular: Present: as per HPI - Respiratory Respiratory: Present: as per HPI - Gastrointestinal Gastrointestinal: Present: as per HPI, dysphagia - Genitourinary Genitourinary: Present: as per HPI - Musculoskeletal Musculoskeletal: Present: as per HPI - Neurological Neurological: Present: as per HPI - Psychiatric Psychiatric: Present: as per HPI - Endocrine Endocrine: Present: as per HPI - Hematologic/Lymphatic Hematologic/Lymphatic: Present: as per HPI Exam - Constitutional Vitals: Period Temp Pulse Resp BP Sys/[place] Pulse Ox Last 24 Hr 97.4 F-98.8 F 56-92 16-20 115-153/58-74 92-100 General appearance: normal weight, no acute distress - Head Head exam: Present: normal inspection, normocephalic - Eye Eye exam: Present: other (lids and conjunctiva unremarkable). Absent: scleral icterus - ENT ENT exam: Present: normal exam, normal oropharynx - Neck Neck exam: Present: normal inspection - Respiratory Respiratory exam: Present: clear to auscultation bilaterally. Absent: rales, rhonchi, wheezes - Cardiovascular Cardiovascular exam: Present: regular rate and rhythm. Absent: diastolic murmur , JVD, systolic murmur - GI/Abdominal GI/Abdominal exam: Present: normal bowel sounds, soft. Absent: ascites, distended, mass, organomegaly, tenderness - Extremities Exam Extremities exam: Present: normal inspection, full ROM - Back Exam Back exam: Present: normal inspection - Neurological Exam Neurological exam: Present: alert, oriented X3 - Psychiatric Psychiatric exam: Present: normal affect, normal mood - Skin Skin exam: Present: normal color, warm, dry Results - Labs CBC & BMP: 03/05/17 04:31 03/05/17 04:31 Lab Results: I have reviewed the past 24 hour labs - Diagnostic Findings Procedure: CT: report reviewed by me
--- NOTE | 2017-03-05 12:39 | Nephrology Progress Note ---
Nephrology - PN: Subj Interval history: Patient denies shortness of breath. Review of systems ENT-patient states he was admitted some white chalky powder this morning and feels like this is stuck in his throat. Physical exam general the patient's chronically ill-appearing but in no acute distress, he has an occasional cough for gag/choking spell briefly during the interview Assessment/plan 1. End-stage renal disease-we will continue hemodialysis support 2. Dysphagia-ENT has seen him in consultation and is hopeful that speech therapy can help greatly with the patient's present symptoms 3. Anemia-patient's hematocrits around 33% 4. Hypertension this control 5. Diabetes mellitus this is controlled Exam (PN)-Nephrology - Vital Signs Vital signs: Period Temp Pulse Resp BP Sys/[place] Pulse Ox Last 24 Hr 97.4 F-98.8 F 56-92 16-20 115-153/58-74 92-100 - Lab 03/05/17 04:31 03/05/17 04:31 Most recent lab results Calcium 8.4 MG/DL (8.5-10.1) L 03/05/17 04:31 Assessment and Plan (1) Dysphagia Status: Acute Assessment and plan: Patient has developed some swallowing difficulty in the past couple of weeks as well as some choking. Most recently had this happen during his dialysis treatment. The patient did have a recent endotracheal intubation about 3 weeks ago for a graft placement in his left arm. I think it would be appropriate to involve ENT and probably gastrointestinal medicine as well. Current Visit: Yes (2) ESRD (end stage renal disease) on dialysis Status: Chronic Assessment and plan: We will plan on continued HD support Current Visit: Yes (3) Anemia Status: Acute Assessment and plan: Patient's hematocrit stable around 33% Current Visit: No (4) Diabetes mellitus with ESRD (end-stage renal disease) Problem details: Uremic symptoms of asterixis. Status: Acute Assessment and plan: I am going to start him on a D10W at 50 cc an hour to give him some caloric input. Patient has been unable to take in very much lately due to his dysphasia. Current Visit: No
--- NOTE | 2017-03-05 14:41 | Infectious Disease Consult ---
Assessment and Plan (1) Osteomyelitis Status: Acute Assessment and plan: Most likely this is due to the MRSA which caused the adjacent neck abscess 4 months ago. Recommendations: Agree with use of vancomycin. Goal trough level is 15-20. Follow-up blood culture results and we will check inflammatory markers; hopefully these can be used to monitor response to treatment. Patient will need 6 weeks of antibiotic therapy. Thank you very much for the consult. Will follow. Current Visit: Yes (2) ESRD (end stage renal disease) on dialysis Status: Chronic Current Visit: Yes (3) Diabetes mellitus with ESRD (end-stage renal disease) Problem details: Uremic symptoms of asterixis. Status: Acute Current Visit : No (4) Congestive heart failure Status: Chronic Current Visit: No Qualifiers: Congestive heart failure type: unspecified congestive heart failure type (5) Essential hypertension Status: Chronic Current Visit: No History of Present Illness Chief complaint: Osteomyelitis History of present illness: Mr. Carlson is a 86 year old male With multiple comorbidities including end-stage renal disease on hemodialysis was in hospital this past October with prolonged MRSA septicemia. At the time he had an abscess to left side of his neck which ultimately was incised and drained. I am not sure how long the patient was treated with antibiotics however he was discharged from here to [facility] and apparently was there for several weeks. Patient ultimately went home and says he was doing okay. He says he has been having trouble swallowing for the past few weeks and that got progressively worse where he felt as if his food was getting stuck in his throat. When he was at dialysis on the day of presentation he was noted to be belching uncontrollably he was sent to the hospital. Patient had CT scan done of the neck and showing destructive bony changes about the left sternal clavicular joints suggestive of osteomyelitis. I am asked to assist with management. Patient has not had any fever or constitutional symptoms. Home Medications Medication Instructions Recorded Confirmed Type Montelukast Tab [Singulair Tab] 10 mg PO BEDTIME 09/14/16 03/03/17 History Albuterol/Ipratropium Neb [Duoneb] 3 ml RESP TX RT Q6H nebulization 11/10/16 Rx solution Carvedilol [Coreg] 3.125 mg PO BID tablet 11/10/16 03/03/17 Rx Polyethylene Glycol 3350 17 gm PO DAILY PRN 12/01/16 03/03/17 History [Smoothlax] Calcium Carbonate Chew [Tums] 1 tablet PO TID W/MEALS 02/06/17 03/03/17 History Ranitidine Tab [Zantac Tab] 150 mg PO TID 02/06/17 03/03/17 History Terbinafine Tab [LamISIL Tab] 250 mg PO BID 02/06/17 03/03/17 History Hydrocodone/Acetaminophen [[place] 1 each PO Q6H PRN #20 tablet 02/07/17 03/03/17 Rx 7.5-325 Tablet] Allergies Allergy/AdvReac Type Severity Reaction Status Date / Time No Known Allergies Allergy Unverified 09/28/16 17:28 12 point system: reviewed and no additional remarkable complaints except as stated (Per HPI) Medical,Surgical,& Family Hx - Medical History Cardio: History of: CHF, CAD, Hypertension (MEDICATION), PVD, Cardiovascular Problems Neurology: History of: Cerebrovascular Accident, Dementia No history of: Seizures HEENT: History of: Eye Problem (GLASSES), Dental Problems, HEENT Problems (Neck abscess) Endocrine: History of: Diabetes Mellitus (IDDM), Dyslipidemia Rheumatology: History of;: Gout Respiratory: History of: COPD Renal: History of: Dialysis (REPLACEMENT OF AV GRAFT), Renal Failure Gastrointestinal: History of: GERD Musculoskeletal: History of: Degenerative Disk Disease, Musculoskeletal Problems - Surgical History Cardiac Surgeries: Sugical HX of: Cardiac Catheterization HEENT Surgeries: Surgical HX of: Eye Surgery (cataract surgery left and right eye) Abdominal Surgeries: Surgical HX of: Colonoscopy, EGD - Family History Family History: Reports;: Family Diabetes, Family Heart Disease, Family Stroke - Social History Smoking Status: Never smoker Frequency of Alcohol Use: None Type of Drug Use: None Infectious Disease Exam H&P - Constitutional Vitals: Vital Signs Temp Pulse Resp BP Pulse Ox 98.1 F 69 20 153/74 100 03/05/17 11:47 03/05/17 11:47 03/05/17 11:47 03/05/17 11:47 03/05/17 11:47 Intake and Output 03/04/17 03/05/17 03/05/17 23:59 07:59 15:59 Intake Total 1000 / 1000 Output Total 0 / 0 Balance 1000 / 1000 Intake: IV 1000 / 1000 D10 1,000 ml @ 50 mls/hr 1000 / 1000 IV .Q20H [facility] Rx#: [id number] Output: Urine 0 / 0 Stool 0 / 0 Other: # Voids 0 0 # Bowel Movements 0 0 Exam: General: Patient relatively comfortable HEENT: Mucous membranes pink and moist, anicteric acyanotic, LOPEZ, no oral exudates Neck: Supple, no thyroid gland enlargement, no lymphadenopathy, scattered left side of neck we had an abscess before, no fluctuance to this area. He has firm swelling over the left sternoclavicular joint which is nontender Respiratory system: Breath sounds vesicular, no crepitations or wheezes Cardiovascular: Normal S1 and S2, no murmurs appreciated Abdomen: Normal bowel sounds, soft nontender throughout, no organomegaly or mass Genitourinary: No suprapubic pain or bladder distention Extremities: no edema, dialysis catheter and right femoral area Skin: No rash Reports - Labs CBC & BMP: 03/05/17 04:31 03/05/17 04:31 Labs: Laboratory Results - last 24 hr 03/04/17 03/04/17 03/05/17 16:48 19:23 04:31 WBC 3.8 L RBC 3.44 L Hgb 11.0 L Hct 34.3 L MCV 99.7 MCH 32 MCHC 32.1 RDW 16.4 Plt Count 170 MPV 11.3 Neut % (Auto) 42.6 Lymph % (Auto) 37.5 [place] % (Auto) 15.3 H Eos % (Auto) 3.2 Baso % (Auto) 1.1 H Neut # (Auto) 1.6 Lymph # (Auto) 1.4 [place] # (Auto) 0.6 Eos # (Auto) 0.1 Baso # (Auto) 0.0 Immature Gran % 0.3 Nucleated RBC % 0.0 Immature Gran # 0.01 Nucleated RBCs # 0.00 Sodium Potassium Chloride Carbon Dioxide Anion Gap BUN Creatinine GFR Calculation BUN/Creatinine Ratio Glucose POC Glucose 147 H 181 H Calculated Osmolality Calcium 03/05/17 03/05/17 03/05/17 04:31 07:00 11:15 WBC RBC Hgb Hct MCV MCH MCHC RDW Plt Count MPV Neut % (Auto) Lymph % (Auto) [place] % (Auto) Eos % (Auto) Baso % (Auto) Neut # (Auto) Lymph # (Auto) [place] # (Auto) Eos # (Auto) Baso # (Auto) Immature Gran % Nucleated RBC % Immature Gran # Nucleated RBCs # Sodium 138 Potassium 3.6 Chloride 101 Carbon Dioxide 27 Anion Gap 13.6 BUN 23 H Creatinine 7.40 H GFR Calculation 7 BUN/Creatinine Ratio 3.00 L Glucose 140 H POC Glucose 183 H 181 H Calculated Osmolality 280.7 Calcium 8.4 L - Reports Microbiology: Microbiology 03/03/17 22:06 Blood Culture - Preliminary Blood No growth at 1 day 03/03/17 20:30 Blood Culture - Preliminary Blood No growth at 1 day - Diagnostic Findings Procedure: Chest x-ray: image reviewed by me, report reviewed by me (No consolidation), CT: report reviewed by me (CT neck noted with worsening destructive changes to bone about the left sternal clavicular joint)
--- NOTE | 2017-03-05 15:32 | Physician Query Form ---
CLICK EDIT DOCUMENT TO SELECT QUERY ANSWER --> OK --> SIGN Vangie Turcios RN Clinical Digital Photographic Printer W) [phone] (f) [phone] [email or web address] PROVIDERS: Make your selection(s) from the choices in EACH section by typing an "x" and enter comments in the comment section. Please use your independent medical judgment in providing your response. This request does not imply that any particular answer is desired or expected. CLINICAL INDICATORS: (Providers should not edit this section) Height: 5ft 11in Weight: 131 lbs Tool Maker Bench BMI: 18.4 Tree Faller notes:Difficulty swallowing. Loss of body fat. Loss of muscle mass Based on the above, which following choice most accurately represents the patient's nutritional status? (x ) Malnutrition ( ) mild (x ) moderate ( ) severe ( ) Protein calorie malnutrition ( ) mild ( ) moderate ( ) severe ( ) Emaciation due to malnutrition ( ) Nutritional marasmus ( ) Cachexia ( ) Underweight ( ) No nutritional deficiency ( ) Other, please specify: ( ) Clinically unable to determine Mild Malnutrition (BMI < 18.5, % Normal Body Weight 85-95%) Moderate Malnutrition (BMI < 17, % Normal Body Weight 75-85%) Severe Malnutrition (BMI < 16, % Normal Body Weight < 75%) Source: [place] COMMENTS: PLEASE ALSO DOCUMENT RESPONSE IN PROGRESS NOTES AND/OR DISCHARGE SUMMARY Use of terms such as suspected, likely, or probable (associated with a specific diagnosis that is being evaluated, monitored, or treated as if it exists) are acceptable and can be restated in the discharge summary if not ruled out. MTDD
[2017-03-05] MEDS: ENOXAPARIN 30 MG/0.3 ML SYRINGE SUBCUT SCH (21:47)
[2017-03-05] MEDS: MONTELUKAST 10 MG TABLET PO SCH (21:52)
[2017-03-06] MEDS: ALBUTEROL/IPRATROPIUM 3 ML NEB RESP TX SCH ×4 (01:12→19:41)
[2017-03-06 05:43] LABS: Calcium 8.4 MG/DL (8.5-10.1); Osmolality,Calculated 287.7 MOS/KG (273-304); Potassium 3.8 MMOL/L (3.5-5.1)
[2017-03-06 05:52] LABS: Basophils % 0.8 % (0.0-0.8); Eosinophils # 0.1 10*3/uL (0.0-0.87); Eosinophils % 3.1 % (0.00-10.9); Hematocrit 35.6 VOL% (42.0-52.0); Hemoglobin 9.9 GM/DL (14.0-18.0); Immature Granulocytes % 0.6 %; Immature Granulocytes Absolute 0.02 #; Lymphocytes # 0.9 10*3/uL (1.4-4.0); Lymphocytes % 25.9 % (21.2-54.2); Mean Corpuscular HGB Conc 27.8 GM/DL (32-36); Mean Corpuscular Hemoglobin 33 PG (27-34); Mean Corpuscular Volume 117.9 FL (87-102); Mean Platelet Volume 11.7 FL (9.6-12.0); Monocytes # 0.5 10*3/uL (0.11-0.8); Monocytes % 14.8 % (1.7-12.7); Neutrophils % 54.8 % (38.7-73.9); Platelet Count 139 T/CUMM (130-400); Red Blood Count 3.02 MC/CUMM (3.8-5.5); Red Cell Distribution Width 16.8 % (9.3-17.3); White Blood Count 3.6 T/CUMM (4-12)
[2017-03-06 06:13] LABS: Platelet Estimate Normal
[2017-03-06 06:22] LABS: Hypochromasia Slight
[2017-03-06] MEDS: DEXTROSE 10% 1,000 ML IV SCH (06:43)
[2017-03-06 06:58] LABS: Microcytosis 1+
--- NOTE | 2017-03-06 08:04 | Nephrology Progress Note ---
Nephrology - PN: Subj Interval history: Patient continues to complain of swallowing difficulties. Review of systems pulmonary denies shortness of breath Physical exam general the patient is in no acute distress Assessment/plan 1. End-stage renal disease we will continue hemodialysis support 2. Dysphagia-patient's to have a EGD today, he is to continue vancomycin for 6 weeks for the possibility of recurrence of MRSA associated infection 3. Anemia-patient's hematocrit is 36% 4. Hypertension this is controlled Exam (PN)-Nephrology - Vital Signs Vital signs: Period Temp Pulse Resp BP Sys/Guaman Pulse Ox Last 24 Hr 97.8 F-98.6 F 57-94 16-24 124-153/65-77 91-100 - Lab 03/06/17 04:28 03/06/17 04:28 Most recent lab results Calcium 8.4 MG/DL (8.5-10.1) L 03/06/17 04:28 Assessment and Plan (1) Dysphagia Status: Acute Assessment and plan: Patient has developed some swallowing difficulty in the past couple of weeks as well as some choking. Most recently had this happen during his dialysis treatment. The patient did have a recent endotracheal intubation about 3 weeks ago for a graft placement in his left arm. I think it would be appropriate to involve ENT and probably gastrointestinal medicine as well. Current Visit: Yes (2) ESRD (end stage renal disease) on dialysis Status: Chronic Assessment and plan: We will plan on continued HD support Current Visit: Yes (3) Anemia Status: Acute Assessment and plan: Patient's hematocrit stable around 33% Current Visit: No (4) Diabetes mellitus with ESRD (end-stage renal disease) Problem details: Uremic symptoms of asterixis. Status: Acute Assessment and plan: I am going to start him on a D10W at 50 cc an hour to give him some caloric input. Patient has been unable to take in very much lately due to his dysphasia. Current Visit: No
[2017-03-06] MEDS: INSULIN LISPRO 100 UNIT/ML SUBCUT SCH ×4 (09:07→20:49)
--- NOTE | 2017-03-06 09:57 | Cardiothoracic Consult ---
Assessment and Plan - Time spent with patient Time spent with patient: Greater than 30 minutes (1) Mediastinitis Status: Acute Assessment and plan: 86-year-old gentleman who 3 months ago had mediastinitis with mediastinal abscess extending to the neck. He comes back recently with dysphagia. He denies any fever or drainage from the wounds in his neck or in his suprasternal area. There is no tenderness noted or redness to indicate osteomyelitis of his joint. I doubt that he has any infection in his joint at this point since he is clinically stable. Since his only complaint is dysphagia I would continue to workup his dysphagia. I doubt that he has ostium myelitis of his joint if any symptoms or drainage arise from that area we will reimage and evaluate accordingly. Current Visit: No History of Present Illness - Data of Consult Patient: known to practice within the last 3 years Consult date: 03/05/17 - Consult Narrative Reason for consult: Possible osteomyelitis of the clavicular sternal joint History of present illness: Mr. Carlson is a 86 year old male who I operated on approximately 3-4 months ago for his substernal/neck abscess. That was drained the patient did well after that. The wound healed appropriately. The patient return to the ER most recently with dysphagia. During his workup he received a CT scan that showed questionable infection of his left sternal clavicular joint. The patient at this point does not have any fever or increased white count. There is no drainage from the wound or a sinus tract noted. CC: Radha Elizabeth MD - Home Medications and Allergies Home Medications: Home Medications Medication Instructions Recorded Confirmed Type Montelukast Tab [Singulair Tab] 10 mg PO BEDTIME 09/14/16 03/03/17 History Albuterol/Ipratropium Neb [Duoneb] 3 ml RESP TX RT Q6H nebulization 11/10/16 Rx solution Carvedilol [Coreg] 3.125 mg PO BID tablet 11/10/16 03/03/17 Rx Polyethylene Glycol 3350 17 gm PO DAILY PRN 12/01/16 03/03/17 History [Smoothlax] Calcium Carbonate Chew [Tums] 1 tablet PO TID W/MEALS 02/06/17 03/03/17 History Ranitidine Tab [Zantac Tab] 150 mg PO TID 02/06/17 03/03/17 History Terbinafine Tab [LamISIL Tab] 250 mg PO BID 02/06/17 03/03/17 History Hydrocodone/Acetaminophen [Donie 1 each PO Q6H PRN #20 tablet 02/07/17 03/03/17 Rx 7.5-325 Tablet] Allergies/Adverse Reactions: Allergies Allergy/AdvReac Type Severity Reaction Status Date / Time No Known Allergies Allergy Unverified 09/28/16 17:28 12 point system: reviewed and no additional remarkable complaints except as stated (Dysphagia) Medical,Surgical,& Family Hx - Medical History Cardio: History of: CHF, CAD, Hypertension (MEDICATION), PVD, Cardiovascular Problems Neurology: History of: Cerebrovascular Accident, Dementia No history of: Seizures HEENT: History of: Eye Problem (GLASSES), Dental Problems, HEENT Problems (Neck abscess) Endocrine: History of: Diabetes Mellitus (IDDM), Dyslipidemia Rheumatology: History of;: Gout Respiratory: History of: COPD Renal: History of: Dialysis (REPLACEMENT OF AV GRAFT), Renal Failure Gastrointestinal: History of: GERD Musculoskeletal: History of: Degenerative Disk Disease, Musculoskeletal Problems - Surgical History Cardiac Surgeries: Sugical HX of: Cardiac Catheterization HEENT Surgeries: Surgical HX of: Eye Surgery (cataract surgery left and right eye) Abdominal Surgeries: Surgical HX of: Colonoscopy, EGD - Family History Family History: Reports;: Family Diabetes, Family Heart Disease, Family Stroke - Social History Smoking Status: Never smoker Frequency of Alcohol Use: None Type of Drug Use: None Physical Examination Vital Signs Temp Pulse Resp BP Pulse Ox 98.1 F 89 20 135/64 99 03/03/17 15:11 03/03/17 15:11 03/03/17 15:11 03/03/17 15:11 03/03/17 15:11 General: Present: Appears Well HEENT: Present: PERRL Neck: Present: Other (Wound healed very well without any problems. There is no drainage. There is no tenderness noted on the clavicular sternal joint) Cardiac: Present: Reg Rate and Rhythm Lungs: Present: Bibasilar Rales, Wheezes Neuro: Present: Cranial Nerve 2-12 Intact Abdomen: Present: Soft Result/EKG - Labs CBC & BMP: 03/06/17 04:28 03/06/17 04:28 Labs: Laboratory Results - last 24 hr 06/09/0903/05/17 03/05/17 11:15 15:57 21:45 WBC RBC Hgb Hct MCV MCH MCHC RDW Plt Count MPV Neut % (Auto) Lymph % (Auto) Dundy % (Auto) Eos % (Auto) Baso % (Auto) Neut # (Auto) Lymph # (Auto) Dundy # (Auto) Eos # (Auto) Baso # (Auto) Immature Gran % Nucleated RBC % Immature Gran # Nucleated RBCs # Platelet Estimate Hypochromasia Microcytosis Morphology Comment Sodium Potassium Chloride Carbon Dioxide Anion Gap BUN Creatinine GFR Calculation BUN/Creatinine Ratio Glucose POC Glucose 181 H 201 H 119 H Calculated Osmolality Calcium 03/06/17 03/06/17 03/06/17 04:28 04:28 05:57 WBC 3.6 L RBC 3.02 L Hgb 9.9 L Hct 35.6 L MCV 117.9 H MCH 33 MCHC 27.8 L RDW 16.8 Plt Count 139 MPV 11.7 Neut % (Auto) 54.8 Lymph % (Auto) 25.9 Dundy % (Auto) 14.8 H Eos % (Auto) 3.1 Baso % (Auto) 0.8 Neut # (Auto) 2.0 Lymph # (Auto) 0.9 L Dundy # (Auto) 0.5 Eos # (Auto) 0.1 Baso # (Auto) 0.0 Immature Gran % 0.6 Nucleated RBC % 0.0 Immature Gran # 0.02 Nucleated RBCs # 0.00 Platelet Estimate Normal Hypochromasia Slight Microcytosis 1+ Morphology Comment Sodium 131 L Potassium 3.8 Chloride 96 L Carbon Dioxide 22 Anion Gap 16.8 H BUN 25 H Creatinine 8.50 H GFR Calculation 6 BUN/Creatinine Ratio 2.00 L Glucose 496 H POC Glucose 186 H Calculated Osmolality 287.7 Calcium 8.4 L
--- NOTE | 2017-03-06 10:45 | Hospitalist Progress Note ---
Assessment and Plan - Time spent with patient Time spent with patient: Greater than 30 minutes (1) Dysphagia Status: Acute Assessment and plan: Appreciate consultation by GI Current Visit: Yes (2) Osteomyelitis Status: Acute Assessment and plan: Continue vancomycin; prior abscess was MRSA. Appreciate infectious disease consult. Blood cultures pending. Current Visit: Yes (3) ESRD (end stage renal disease) on dialysis Status: Chronic Assessment and plan: Nephrology involved. Current Visit: Yes (4) Diabetes mellitus with ESRD (end-stage renal disease) Problem details: Uremic symptoms of asterixis. Status: Acute Assessment and plan: Continue current management. Current Visit: No Hospitalist: Subjective Interval history: No complaints or overnight events. Exam - Constitutional Vitals: Period Temp Pulse Resp BP Sys/Guaman Pulse Ox Last 24 Hr 97.8 F-98.6 F 57-94 16-24 124-153/65-77 76-100 General appearance: no acute distress - Head Head exam: Present: normocephalic, atraumatic - Eye Eye exam: Present: EOMI Pupils: Present: LOPEZ - ENT ENT exam: Present: normal exam - Neck Neck exam: Present: normal inspection - Respiratory Respiratory exam: Present: clear to auscultation bilaterally. Absent: rhonchi, wheezes - Cardiovascular Cardiovascular exam: Present: regular rate and rhythm. Absent: gallop, rubs, systolic murmur - GI/Abdominal GI/Abdominal exam: Present: normal bowel sounds, soft. Absent: distended, firm , guarding, tenderness, rebound - Extremities Exam Extremities exam: Present: normal inspection. Absent: calf tenderness, edema Results - Labs CBC & BMP: 03/06/17 04:28 03/06/17 04:28 Lab Results: I have reviewed the past 24 hour labs
[2017-03-06] MEDS ORDERED: LIDOCAINE 1% 5 ML VIAL ONE (12:20)
[2017-03-06] MEDS ORDERED: PROPOFOL 200 MG/20 ML VIAL IV ONE (12:20)
--- NOTE | 2017-03-06 12:24 | History and Physical Update ---
History and Physical Update - History and Physical H&P was reviewed, the patient examined and there: are no changes in the patients condition since last H&P was completed. - Physical Exam Mental Status: alert and oriented Heart: regular rate and rhythm Lung: clear to auscultation Abdomen: within normal limits Vitals: within normal limits
--- NOTE | 2017-03-06 12:32 | Operative Note ---
Date of procedure: 03/06/17 Pre-op diagnosis: Dysphagia Procedure: Procedure: Esophagogastroduodenoscopy with bougie dilation esophagus Brief clinical abstract: Patient is an 86-year-old male admitted with recurrent neck abscess. He had previous PEG tube placed around 6 months ago which was removed a couple months later after he was eating better. He has lost over 20 pounds of weight recently and not eating well again. He attributes this primarily to dysphagia to solids. He refuses repeat PEG tube placement. Indication for procedure: Dysphagia Endoscopic findings:[After informed consent was obtained, the patient was placed in the left lateral decubitus position. The gastroscope was inserted in the upper esophagus under direct vision with no resistance encountered. Esophageal mucosa appeared normal down to the squamocolumnar junction where a mildly obstructive fibrous appearing stricture was noted. Just distal to this was a small hiatal hernia. The endoscope was advanced in the stomach which was carefully examined including retroflexed view of the cardia and fundus with no other abnormality seen. The pyloric channel, duodenal bulb, second and third portion of the duodenum were normal. The endoscope was withdrawn and Morel dilator size 54 Ukrainian was inserted in the upper esophagus and advanced beyond the level of the GE junction with mild resistance encountered. No blood was noted on the dilator afterwards and he had no chest pain. He appeared to tolerate the procedure well. 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 Anesthesia: MAC Surgeon / Physician: Mike Tavares Estimated blood loss: none Specimens: none sent Condition: stable Disposition: post procedure unit Results - Labs CBC & BMP: 03/06/17 04:28 03/06/17 04:28 Discharge Plan - Discharge Medications No Action Polyethylene Glycol 3350 [Smoothlax] 17 gm PO DAILY PRN PRN Reason: Constipation Terbinafine Tab [LamISIL Tab] 250 mg PO BID Ranitidine Tab [Zantac Tab] 150 mg PO TID Calcium Carbonate Chew [Tums] 1 tablet PO TID W/MEALS Montelukast Tab [Singulair Tab] 10 mg PO BEDTIME Albuterol/Ipratropium Neb [Duoneb] 3 ml RESP TX RT Q6H nebulization solution Carvedilol [Coreg] 3.125 mg PO BID tablet Hydrocodone/Acetaminophen [Lawrence 7.5-325 Tablet] 1 each PO Q6H PRN #20 tablet PRN Reason: Pain - Follow Up or Referral - Forms/Instructions
--- NOTE | 2017-03-06 12:46 | Anesthesia Post-Op ---
Anesthesia Post OP - Post Ansesthetic Evaluation Patient seen in post op: Yes Resp: within normal limits CV: within normal limits Mental: within normal limits Temp: within normal limits [id number]: within normal limits Nausea and Vomiting: within normal limits Pain: within normal limits
--- NOTE | 2017-03-06 15:17 | Dialysis Note ---
Dialysis Note - Dialysis Note Mr. Gaxiola is seen during his hemodialysis. He is tolerating dialysis well and is maintaining a stable blood pressure. Plan is to continue to support with dialysis
--- NOTE | 2017-03-06 16:35 | Infectious Disease Progress ---
Assessment and Plan (1) Osteomyelitis Status: Acute Assessment and plan: Most likely this is due to the MRSA which caused the adjacent neck abscess 4 months ago. Recommendations: Continue vancomycin. Goal trough level is 15-20. Follow-up blood culture results. Patient will need 6 weeks of antibiotic therapy, thus until April 14. Current Visit: Yes (2) ESRD (end stage renal disease) on dialysis Status: Chronic Current Visit: Yes (3) Diabetes mellitus with ESRD (end-stage renal disease) Problem details: Uremic symptoms of asterixis. Status: Acute Current Visit : No (4) Congestive heart failure Status: Chronic Current Visit: No Qualifiers: Congestive heart failure type: unspecified congestive heart failure type (5) Essential hypertension Status: Chronic Current Visit: No Infectious Disease - PN: Subj Interval history: No new complaints, says he still has some difficulty swallowing. Had EGD with esophageal stricture dilated. He has been afebrile. Minimal pain to left sternoclavicular area. Infectious Disease Exam (PN) - Constitutional Vitals: Temp Pulse Resp BP Pulse Ox 98.4 F 63 14 122/64 100 03/06/17 10:55 03/06/17 13:02 03/06/17 13:02 03/06/17 13:02 03/06/17 13:02 General appearance: no acute distress Exam: General appearance: no acute distress, was getting dialysis - Eye Eye exam: Present: EOMI. no icterus Pupils: Present: LOPEZ - ENT ENT exam: no oropharyhgeal exudates - Neck Neck exam: supple, no lymphadenopathy, minimal tenderness about the left sternoclavicular area with surrounding swelling - Respiratory Respiratory exam: vesicular BS, no crepitations or wheezes - Cardiovascular Cardiovascular exam: regular rate and rhythm, no murmurs - GI/Abdominal GI/Abdominal exam: normal bowel sounds, soft, non-tender, no organomegaly or mass - Extremities Exam Extremities exam: no edema - Skin Skin exam: no rash Results - Labs CBC & BMP: 03/06/17 04:28 03/06/17 04:28 Lab Results: I have reviewed the past 24 hour labs (Blood cultures negative to date)
[2017-03-06] MEDS: PANTOPRAZOLE 40 MG TABLET PO SCH (17:36)
[2017-03-06] MEDS: CARVEDILOL 3.125 MG TABLET PO SCH ×2 (17:37→20:50)
--- NOTE | 2017-03-06 17:56 | Event Note ---
Patient tolerating soft diet after esophageal dilation with no difficulty swallowing he says. I will sign off. Please call if needed.
[2017-03-06] MEDS: ENOXAPARIN 30 MG/0.3 ML SYRINGE SUBCUT SCH (20:49)
[2017-03-06] MEDS: MONTELUKAST 10 MG TABLET PO SCH (20:50)
[2017-03-06] MEDS ORDERED: VANCOMYCIN INJ 500 MG in SODIUM CHLORIDE 0.9% 100 ML IV ONE (21:00)
[2017-03-07] MEDS: ALBUTEROL/IPRATROPIUM 3 ML NEB RESP TX SCH ×4 (01:42→19:50)
[2017-03-07] MEDS: DEXTROSE 10% 1,000 ML IV SCH ×2 (06:12→16:12)
[2017-03-07 06:16] LABS: Calcium 7.9 MG/DL (8.5-10.1); Potassium 5.1 MMOL/L (3.5-5.1)
[2017-03-07] MEDS: INSULIN LISPRO 100 UNIT/ML SUBCUT SCH ×4 (07:53→20:49)
[2017-03-07] MEDS: CARVEDILOL 3.125 MG TABLET PO SCH ×2 (08:49→20:49)
[2017-03-07] MEDS: PANTOPRAZOLE 40 MG TABLET PO SCH (08:49)
--- NOTE | 2017-03-07 08:59 | Nephrology Progress Note ---
Nephrology - PN: Subj Interval history: Patient reports continued difficulty with swallowing. Review of systems pulmonary denies shortness of breath, GI-patient was noted to have some distal esophageal stricture which was dilated yesterday with EGD Physical exam general the patient is in no acute distress Assessment/plan 1. Dysphagia,-we will see how patient swallowing does in the next few days. If he continues to have problems he may require a PEG tube placement for nutritional support 2. End-stage renal disease-continue HD support 3. Diabetes mellitus continue his present hypoglycemic regimen Exam (PN)-Nephrology - Vital Signs Vital signs: Period Temp Pulse Resp BP Sys/Guaman Pulse Ox Last 24 Hr 97.3 F-99.5 F 63-78 12-20 100-168/49-73 94-100 - Lab 03/06/17 04:28 03/07/17 04:32 Most recent lab results Calcium 7.9 MG/DL (8.5-10.1) L 03/07/17 04:32 Assessment and Plan (1) Dysphagia Status: Acute Assessment and plan: Patient has developed some swallowing difficulty in the past couple of weeks as well as some choking. Most recently had this happen during his dialysis treatment. The patient did have a recent endotracheal intubation about 3 weeks ago for a graft placement in his left arm. I think it would be appropriate to involve ENT and probably gastrointestinal medicine as well. Current Visit: Yes (2) ESRD (end stage renal disease) on dialysis Status: Chronic Assessment and plan: We will plan on continued HD support Current Visit: Yes (3) Anemia Status: Acute Assessment and plan: Patient's hematocrit stable around 33% Current Visit: No (4) Diabetes mellitus with ESRD (end-stage renal disease) Problem details: Uremic symptoms of asterixis. Status: Acute Assessment and plan: I am going to start him on a D10W at 50 cc an hour to give him some caloric input. Patient has been unable to take in very much lately due to his dysphasia. Current Visit: No
[2017-03-07 09:25] LABS: Basophils % 0.9 % (0.0-0.8); Eosinophils # 0.1 10*3/uL (0.0-0.87); Eosinophils % 4.1 % (0.00-10.9); Hematocrit 35.3 VOL% (42.0-52.0); Hemoglobin 11.5 GM/DL (14.0-18.0); Immature Granulocytes % 0.3 %; Immature Granulocytes Absolute 0.01 #; Lymphocytes # 1.2 10*3/uL (1.4-4.0); Lymphocytes % 38.2 % (21.2-54.2); Mean Corpuscular HGB Conc 32.6 GM/DL (32-36); Mean Corpuscular Hemoglobin 32 PG (27-34); Mean Platelet Volume 11.2 FL (9.6-12.0); Monocytes # 0.6 10*3/uL (0.11-0.8); Monocytes % 18.9 % (1.7-12.7); Neutrophils # 1.2 10*3/uL (1.4-7.4); Neutrophils % 37.6 % (38.7-73.9); Platelet Count 142 T/CUMM (130-400); Red Blood Count 3.64 MC/CUMM (3.8-5.5); Red Cell Distribution Width 16.5 % (9.3-17.3); White Blood Count 3.2 T/CUMM (4-12)
[2017-03-07 09:59] LABS: Eosinophils 4 % (0-10); Lymphocytes 33 % (20-55); Platelet Estimate Normal; Segmented Neutrophils 43 % (50-85); Total Cells Counted 100
[2017-03-07 10:00] LABS: Burr Cells Slight; Hypochromasia Slight; Microcytosis 1+
--- NOTE | 2017-03-07 10:36 | Hospitalist Progress Note ---
Assessment and Plan - Time spent with patient Time spent with patient: Greater than 30 minutes (1) Dysphagia Status: Acute Assessment and plan: EGD with esophageal dilation. Appreciate consultation by GI Current Visit: Yes (2) Osteomyelitis Status: Acute Assessment and plan: Continue vancomycin; prior abscess was MRSA. Will attempt to arrange LTAC placement. Current Visit: Yes (3) ESRD (end stage renal disease) on dialysis Status: Chronic Assessment and plan: Nephrology involved. Current Visit: Yes (4) Diabetes mellitus with ESRD (end-stage renal disease) Problem details: Uremic symptoms of asterixis. Status: Acute Assessment and plan: Continue current management. Current Visit: No Hospitalist: Subjective Interval history: No complaints overnight events. Exam - Constitutional Vitals: Period Temp Pulse Resp BP Sys/Guaman Pulse Ox Last 24 Hr 97.3 F-99.5 F 63-82 12-20 100-168/49-73 94-100 General appearance: no acute distress - Head Head exam: Present: normocephalic, atraumatic - Eye Eye exam: Present: EOMI Pupils: Present: LOPEZ - ENT ENT exam: Present: normal exam - Neck Neck exam: Present: normal inspection - Respiratory Respiratory exam: Present: clear to auscultation bilaterally. Absent: rhonchi, wheezes - Cardiovascular Cardiovascular exam: Present: regular rate and rhythm. Absent: gallop, rubs, systolic murmur - GI/Abdominal GI/Abdominal exam: Present: normal bowel sounds, soft. Absent: distended, firm , guarding, tenderness, rebound - Extremities Exam Extremities exam: Present: normal inspection. Absent: calf tenderness, edema Results - Labs CBC & BMP: 03/07/17 06:48 03/07/17 04:32 Lab Results: I have reviewed the past 24 hour labs
--- NOTE | 2017-03-07 14:22 | Infectious Disease Progress ---
Assessment and Plan (1) Osteomyelitis Status: Acute Assessment and plan: Most likely this is due to the MRSA which caused the adjacent neck abscess 4 months ago. Recommendations: Continue vancomycin. Check trough level tomorrow. Goal trough level is 15-20. Follow-up blood culture results. Patient will need 6 weeks of antibiotic therapy, thus until April 14. Discussed with son at bedside. Current Visit: Yes (2) ESRD (end stage renal disease) on dialysis Status: Chronic Current Visit: Yes (3) Diabetes mellitus with ESRD (end-stage renal disease) Problem details: Uremic symptoms of asterixis. Status: Acute Current Visit : No (4) Congestive heart failure Status: Chronic Current Visit: No Qualifiers: Congestive heart failure type: unspecified congestive heart failure type (5) Essential hypertension Status: Chronic Current Visit: No Infectious Disease - PN: Subj Interval history: Patient doing fair, swallowing little better. Family considering PEG tube. No fever. Infectious Disease Exam (PN) - Constitutional Vitals: Temp Pulse Resp BP Pulse Ox 97.9 F 85 18 141/64 99 03/07/17 11:16 03/07/17 13:00 03/07/17 13:00 03/07/17 11:16 03/07/17 13:00 General appearance: no acute distress Exam: General appearance: no acute distress - Eye Eye exam: Present: EOMI. no icterus Pupils: Present: LOPEZ - ENT ENT exam: no oral exudates - Neck Neck exam: supple, no lymphadenopathy, minimal tenderness about the left sternoclavicular area with surrounding swelling - Respiratory Respiratory exam: vesicular BS, no crepitations or wheezes - Cardiovascular Cardiovascular exam: regular rate and rhythm, no murmurs - GI/Abdominal GI/Abdominal exam: normal bowel sounds, soft, non-tender, no organomegaly or mass - Extremities Exam Extremities exam: no edema - Skin Skin exam: no rash Results - Labs CBC & BMP: 03/07/17 06:48 03/07/17 04:32 Lab Results: I have reviewed the past 24 hour labs
[2017-03-07] MEDS: ENOXAPARIN 30 MG/0.3 ML SYRINGE SUBCUT SCH (20:48)
[2017-03-07] MEDS: MONTELUKAST 10 MG TABLET PO SCH (20:49)
[2017-03-08] MEDS: ALBUTEROL/IPRATROPIUM 3 ML NEB RESP TX SCH ×3 (00:02→13:54)
[2017-03-08 05:35] LABS: Calcium 7.7 MG/DL (8.5-10.1); Osmolality,Calculated 270.5 MOS/KG (273-304)
[2017-03-08 06:44] LABS: Basophils % 0.6 % (0.0-0.8); Eosinophils # 0.1 10*3/uL (0.0-0.87); Eosinophils % 3.3 % (0.00-10.9); Hemoglobin 11.2 GM/DL (14.0-18.0); Immature Granulocytes % 0.3 %; Immature Granulocytes Absolute 0.01 #; Lymphocytes # 1.2 10*3/uL (1.4-4.0); Lymphocytes % 35.9 % (21.2-54.2); Mean Corpuscular HGB Conc 32.9 GM/DL (32-36); Mean Corpuscular Hemoglobin 32 PG (27-34); Mean Corpuscular Volume 97.4 FL (87-102); Mean Platelet Volume 11.1 FL (9.6-12.0); Monocytes # 0.6 10*3/uL (0.11-0.8); Monocytes % 18.4 % (1.7-12.7); Neutrophils # 1.4 10*3/uL (1.4-7.4); Neutrophils % 41.5 % (38.7-73.9); Platelet Count 119 T/CUMM (130-400); Red Blood Count 3.49 MC/CUMM (3.8-5.5); Red Cell Distribution Width 16.3 % (9.3-17.3); White Blood Count 3.4 T/CUMM (4-12)
[2017-03-08 07:14] LABS: Eosinophils 5 % (0-10); Hypochromasia 1+; Lymphocytes 32 % (20-55); Platelet Estimate Decreased; Segmented Neutrophils 43 % (50-85); Total Cells Counted 100
[2017-03-08 07:15] LABS: Burr Cells Slight; Microcytosis 1+
[2017-03-08] MEDS: DEXTROSE 10% 1,000 ML IV SCH ×2 (07:43→14:08)
[2017-03-08] MEDS: INSULIN LISPRO 100 UNIT/ML SUBCUT SCH ×2 (07:44→11:15)
[2017-03-08 08:04] VITALS: BP 144/62
[2017-03-08] MEDS: CARVEDILOL 3.125 MG TABLET PO SCH (08:14)
[2017-03-08] MEDS: PANTOPRAZOLE 40 MG TABLET PO SCH (08:16)
[2017-03-08] MEDS ORDERED: VANCOMYCIN INJ 750 MG in SODIUM CHLORIDE 0.9% 250 ML IV PRN (08:30)
--- NOTE | 2017-03-08 09:05 | Nephrology Progress Note ---
Nephrology - PN: Subj Interval history: Patient is seen on hemodialysis, he is tolerating this well will continue his treatment unchanged. Exam (PN)-Nephrology - Vital Signs Vital signs: Period Temp Pulse Resp BP Sys/Guaman Pulse Ox Last 24 Hr 97.7 F-98.5 F 65-87 16-20 130-144/60-67 94-100 - Lab 03/08/17 03:43 03/08/17 03:43 Most recent lab results Calcium 7.7 MG/DL (8.5-10.1) L 03/08/17 03:43 Assessment and Plan (1) Dysphagia Status: Acute Assessment and plan: Patient has developed some swallowing difficulty in the past couple of weeks as well as some choking. Most recently had this happen during his dialysis treatment. The patient did have a recent endotracheal intubation about 3 weeks ago for a graft placement in his left arm. I think it would be appropriate to involve ENT and probably gastrointestinal medicine as well. Current Visit: Yes (2) ESRD (end stage renal disease) on dialysis Status: Chronic Assessment and plan: We will plan on continued HD support Current Visit: Yes (3) Anemia Status: Acute Assessment and plan: Patient's hematocrit stable around 33% Current Visit: No (4) Diabetes mellitus with ESRD (end-stage renal disease) Problem details: Uremic symptoms of asterixis. Status: Acute Assessment and plan: I am going to start him on a D10W at 50 cc an hour to give him some caloric input. Patient has been unable to take in very much lately due to his dysphasia. Current Visit: No
--- NOTE | 2017-03-08 11:24 | Infectious Disease Progress ---
Assessment and Plan (1) Osteomyelitis Status: Acute Assessment and plan: Most likely this is due to the MRSA which caused the adjacent neck abscess 4 months ago. Recommendations: Continue vancomycin. Trough subtherapeutic so dose being increased to 750mg post HD. Patient will need 6 weeks of antibiotic therapy, thus until April 14. Discussed with clinical pharmacist. recheck vanc trough in a few days. Current Visit: Yes (2) ESRD (end stage renal disease) on dialysis Status: Chronic Current Visit: Yes (3) Diabetes mellitus with ESRD (end-stage renal disease) Problem details: Uremic symptoms of asterixis. Status: Acute Current Visit : No (4) Congestive heart failure Status: Chronic Current Visit: No Qualifiers: Congestive heart failure type: unspecified congestive heart failure type (5) Essential hypertension Status: Chronic Current Visit: No Infectious Disease - PN: Subj Interval history: Patient without complaints when I saw him on dialysis this am. Afebrile. Infectious Disease Exam (PN) - Constitutional Vitals: Temp Pulse Resp BP Pulse Ox 98.5 F 73 18 144/62 96 03/08/17 08:00 03/08/17 08:00 03/08/17 08:00 03/08/17 08:00 03/08/17 08:00 General appearance: no acute distress Exam: General appearance: comfortable on dialysis - Eye Eye exam: Present: EOMI. no icterus Pupils: Present: LOPEZ - ENT ENT exam: no oral exudates - Neck Neck exam: supple, no lymphadenopathy, minimal tenderness about the left sternoclavicular area with surrounding swelling - Respiratory Respiratory exam: vesicular BS, no crepitations or wheezes - Cardiovascular Cardiovascular exam: regular rate and rhythm, no murmurs - GI/Abdominal GI/Abdominal exam: normal bowel sounds, soft, non-tender, no organomegaly or mass - Extremities Exam Extremities exam: no edema - Skin Skin exam: no rash Results - Labs CBC & BMP: 03/08/17 03:43 03/08/17 03:43 Lab Results: I have reviewed the past 24 hour labs (blood cultures NGTD)
--- NOTE | 2017-03-08 11:43 | Discharge Summary ---
Hospital Course - Hospital Course Hospital Course: Mr. Carlson was admitted with complaints of dysphagia. 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 Patient had a normal white blood cell count and no elevation of temperature to suggest sepsis. Patient recently had an MRSA abscess of his neck and this was presumed to be an extension of that. He was initiated on vancomycin, infectious disease and CV surgery were consulted. Patient was also seen by gastroenterology for dysphagia where he had an EGD performed which revealed an esophageal stricture that was dilated. He will continue his vancomycin for a total of 6 weeks beginning from initiation until April 14. Blood cultures were negative at discharge. By discharge he had met maximum benefit of hospitalization. 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 Specialty Discharge - Follow Up or Referrals Follow up with: Tonie Grewal MD [Physician] - 1 Month Discharge Plan - Discharge Data Disposition: Disch To Home/Self Care Condition at Discharge: Stable Discharge Diet: advance to your usual diet Activity: resume usual activities as tolerated Hygiene: no restrictions - Discharge Medications New Vancomycin Inj 750 mg IV PRN PRN vial PRN Reason: PHARMACY TO DOSE-DIALYSIS Continue Polyethylene Glycol 3350 [Smoothlax] 17 gm PO DAILY PRN PRN Reason: Constipation Terbinafine Tab [LamISIL Tab] 250 mg PO BID Ranitidine Tab [Zantac Tab] 150 mg PO TID Calcium Carbonate Chew [Tums] 1 tablet PO TID W/MEALS Montelukast Tab [Singulair Tab] 10 mg PO BEDTIME Albuterol/Ipratropium Neb [Duoneb] 3 ml RESP TX RT Q6H nebulization solution Carvedilol [Coreg] 3.125 mg PO BID tablet Hydrocodone/Acetaminophen [[place] 7.5-325 Tablet] 1 each PO Q6H PRN #20 tablet PRN Reason: Pain - Follow Up or Referral Follow Up: Tonie Grewal MD [Physician] - 1 Month - Forms/Instructions Exam - Constitutional Vitals: Period Temp Pulse Resp BP Sys/[place] Pulse Ox Last 24 Hr 97.7 F-98.5 F 65-87 16-20 130-144/60-67 94-99 General appearance: normal weight, no acute distress - Head Head exam: Present: normal inspection, normocephalic, atraumatic - Eye Eye exam: Present: EOMI Pupils: Present: LOPEZ - ENT ENT exam: Present: normal exam - Neck Neck exam: Present: normal inspection. Absent: lymphadenopathy, meningismus - Respiratory Respiratory exam: Present: clear to auscultation bilaterally. Absent: accessory muscle use, rales, rhonchi, stridor - Cardiovascular Cardiovascular exam: Present: regular rate and rhythm. Absent: bradycardia, irregular rhythm, systolic murmur - GI/Abdominal GI/Abdominal exam: Present: normal bowel sounds. Absent: ascites, distended, mass - Extremities Exam Extremities exam: Present: normal inspection Discharge Results Procedures and tests throughout hospitalization: Pending Orders 03/03/17 22:06 Blood Culture Routine Labs on day of discharge: Labs from last 24 hours 03/08/17 03/08/17 03/08/17 06:57 03:43 03:43 WBC 3.4 L RBC 3.49 L Hgb 11.2 L Hct 34.0 L MCV 97.4 MCH 32 MCHC 32.9 RDW 16.3 Plt Count 119 L MPV 11.1 Neut % (Auto) 41.5 Lymph % (Auto) 35.9 [place] % (Auto) 18.4 H Eos % (Auto) 3.3 Baso % (Auto) 0.6 Neut # (Auto) 1.4 Lymph # (Auto) 1.2 L [place] # (Auto) 0.6 Eos # (Auto) 0.1 Baso # (Auto) 0.0 Total Counted 100 Immature Gran % 0.3 Nucleated RBC % 0.0 Immature Gran # 0.01 Segmented Neutrophils 43 L Lymphocytes 32 Monocytes 20 H Eosinophils 5 Nucleated RBCs # 0.00 Platelet Estimate Decreased Hypochromasia 1+ Microcytosis 1+ Gridley Cells Slight Morphology Comment Sodium 132 L Potassium 4.0 Chloride 96 L Carbon Dioxide 23 Anion Gap 17.0 H BUN 27 H Creatinine 7.60 H GFR Calculation 7 BUN/Creatinine Ratio 3.00 L Glucose 139 H POC Glucose 143 H Calculated Osmolality 270.5 L Calcium 7.7 L Random Vancomycin 03/08/17 03/07/17 03/07/17 03:43 19:44 16:47 WBC RBC Hgb Hct MCV MCH MCHC RDW Plt Count MPV Neut % (Auto) Lymph % (Auto) [place] % (Auto) Eos % (Auto) Baso % (Auto) Neut # (Auto) Lymph # (Auto) [place] # (Auto) Eos # (Auto) Baso # (Auto) Total Counted Immature Gran % Nucleated RBC % Immature Gran # Segmented Neutrophils Lymphocytes Monocytes Eosinophils Nucleated RBCs # Platelet Estimate Hypochromasia Microcytosis [place] Cells Morphology Comment Sodium Potassium Chloride Carbon Dioxide Anion Gap BUN Creatinine GFR Calculation BUN/Creatinine Ratio Glucose POC Glucose 153 H 150 H Calculated Osmolality Calcium Random Vancomycin 11.6 Preliminary micro results at discharge 03/03/17 22:06 Blood Culture - Preliminary Blood No growth at 3 days 03/03/17 20:30 Blood Culture - Preliminary Blood No growth at 3 days DS: Provider Date of admission: 03/03/17 17:41 Primary care physician: . No PCP Attending physician on admission: Marty Ling MD Consults: 03/03/17 20:13 Consult to Physician [CONS] Routine Comment: ESRD Consulting Provider: Marty Smyth Person Notified: Dr. Smyth notified on rounds Date Notified: 03/04/17 Time Notified: 10:00 Consult to Physician [CONS] Routine Comment: possible osteo of left sternoclavicular joint Consulting Provider: Marce Alvarado Consulting Provider Notified: Yes When should Consulting Provider be notified: Now Person Notified: paulina marino Date Notified: 03/05/17 Time Notified: 08:32 Consult Notification Comment: 03/04/17 10:10 Dr. Yates notified, he said to notify Dr. Alvarado in AM 03/03/17 20:35 Consult to Dietitian [CONS] Routine Reason for Dietitian: Other 03/04/17 09:19 Consult to Pharmacy [CONS] Routine Reason for Pharmacy Consult: Dose/Manage Vancomycin Consult to Physician [CONS] Routine Comment: osteomyelitis Consulting Provider: Tonie Grewal Consult to Specialist Group: Infectious Disease When should Consulting Provider be notified: In am 03/04/17 10:39 Consult to Physician [CONS] Routine Comment: Evaluate dysphagia Consulting Provider: Anurag Mei Consulting Provider Notified: Yes When should Consulting Provider be notified: Now Person Notified: Dr. Mei Date Notified: 03/04/17 Time Notified: 17:07 Consult Notification Comment: Dr. Mei said he would see the patient in the AM. heath called with room number 03/05/17 03/04/17 14:38 Consult to Physician [CONS] Routine Comment: Dysphasia Consulting Provider: Consulting Provider Notified: Yes When should Consulting Provider be notified: Now Consult to Specialist Group: Gastroenterology When should Consulting Provider be notified: Now Person Notified: Dr. Bishop Date Notified: 03/04/17 Time Notified: 16:23 Consult Notification Comment: Dr. Bishop said he would see the patient in the AM unless the patient status changes. 03/05/17 11:04 Consult to Physician [CONS] Routine Comment: Consulting Provider: Mike Tavares Consulting Provider Notified: Yes When should Consulting Provider be notified: Now Consult to Specialist Group: Gastroenterology When should Consulting Provider be notified: Now Person Notified: serasheron marino Date Notified: 03/05/17 Time Notified: 11:11 03/05/17 14:54 Consult to Pharmacy [CONS] Routine Reason for Pharmacy Consult: Other Comment: Goal vancomycin trough ~20 03/07/17 10:34 Consult to Case Mgmt/Social Srvs [CONS] Routine Reason for Case Mgmt/Social Srvs: LTAC Consult Comment: Will require 6 weeks of IV vancomycin. End date is April 14. Discharging clinician: Radha Elizabeth MD Expected date of discharge: 03/08/17
[2017-03-08] MEDS ORDERED: VANCOMYCIN INJ 750 MG in SODIUM CHLORIDE 0.9% 250 ML IV ONE (17:00)
== END 2017-03-08 15:09 | disposition home or self-care (01) | DRG 638 ==
LOC: N.ED 14:52 → N.EDINP 17:41 → SUATTDRO 17:41 → N.EDINP 18:43 → N.3E 19:08
PROVIDERS: ADMIT Student in an Organized Health Care Education/Training Program; ATTEND Internal Medicine

== ENCOUNTER 2018-04-27 15:45 | Observation (INO) ==
[2018-04-27 16:30] LABS: Basophils % 0.8 % (0.0-0.8); Eosinophils # 0.1 10*3/uL (0.0-0.87); Hematocrit 35.5 VOL% (42.0-52.0); Immature Granulocytes % 0.3 %; Immature Granulocytes Absolute 0.01 #; Lymphocytes % 28.2 % (21.2-54.2); Mean Corpuscular HGB Conc 33.8 GM/DL (32-36); Mean Corpuscular Hemoglobin 31 PG (27-34); Mean Corpuscular Volume 92.7 FL (87-102); Mean Platelet Volume 11.2 FL (9.6-12.0); Monocytes # 0.6 10*3/uL (0.11-0.8); Monocytes % 16.5 % (1.7-12.7); Neutrophils # 1.9 10*3/uL (1.4-7.4); Neutrophils % 52.2 % (38.7-73.9); Platelet Count 153 T/CUMM (130-400); Red Blood Count 3.83 MC/CUMM (3.8-5.5); White Blood Count 3.6 T/CUMM (4-12)
[2018-04-27 16:40] LABS: INR 1.1; PT Patient Result 11.4 SECS
[2018-04-27 16:47] LABS: Partial Thromboplastin Time 70.4 SECS (0-40)
[2018-04-27] MEDS ORDERED: ceFAZolin 1,000 MG in SYRINGE 1 EACH IV ONE (16:53)
[2018-04-27 16:54] LABS: Eosinophils 3 % (0-10); Lymphocytes 31 % (20-55); Segmented Neutrophils 57 % (50-85); Total Cells Counted 100
[2018-04-27 16:55] LABS: Platelet Estimate Adequate
[2018-04-27 16:56] LABS: Albumin 3.8 G/DL (3.4-5.0); Bilirubin,Total 0.8 MG/DL (0.2-1.0); Calcium 8.8 MG/DL (8.5-10.1); Osmolality,Calculated 275.5 MOS/KG (273-304); Potassium 3.1 MMOL/L (3.5-5.1); Total Protein 7.7 G/DL (6.4-8.3)
[2018-04-27] MEDS ORDERED: LIDOCAINE 1%/EPI INJ 20 ML VIAL ONE (17:45)
[2018-04-27] MEDS ORDERED: VANCOMYCIN 1,000 MG VIAL ONE (17:52)
[2018-04-27] MEDS ORDERED: PROTAMINE SULFATE 50 MG/5 ML VIAL IV ONE (18:00)
[2018-04-27] MEDS ORDERED: ACETAMINOPHEN 325 MG TABLET PO PRN (18:02)
[2018-04-27] MEDS ORDERED: ONDANSETRON 4 MG/2 ML VIAL IV PRN (18:02)
[2018-04-27] MEDS ORDERED: VANCOMYCIN INJ 1,000 MG in SODIUM CHLORIDE 0.9% 250 ML IV ONE (18:31)
[2018-04-27] MEDS ORDERED: SODIUM CHLORIDE 0.9% 1,000 ML IV STA (18:32)
[2018-04-27] MEDS: METOPROLOL SUCCINATE XL 100 MG TABLET PO SCH (20:52)
[2018-04-28 05:25] LABS: Basophils % 1.1 % (0.0-0.8); Eosinophils % 1.1 % (0.00-10.9); Hematocrit 25.2 VOL% (42.0-52.0); Hemoglobin 8.4 GM/DL (14.0-18.0); Lymphocytes # 0.6 10*3/uL (1.4-4.0); Lymphocytes % 22.2 % (21.2-54.2); Mean Corpuscular HGB Conc 33.3 GM/DL (32-36); Mean Corpuscular Hemoglobin 31 PG (27-34); Mean Platelet Volume 11.3 FL (9.6-12.0); Monocytes # 0.3 10*3/uL (0.11-0.8); Monocytes % 12.4 % (1.7-12.7); Neutrophils # 1.7 10*3/uL (1.4-7.4); Neutrophils % 63.2 % (38.7-73.9); Platelet Count 142 T/CUMM (130-400); Red Blood Count 2.74 MC/CUMM (3.8-5.5); Red Cell Distribution Width 13.1 % (9.3-17.3); White Blood Count 2.7 T/CUMM (4-12)
[2018-04-28 05:39] LABS: Calcium 8.3 MG/DL (8.5-10.1); Osmolality,Calculated 279.4 MOS/KG (273-304)
[2018-04-28 06:13] VITALS: BP 164/80
[2018-04-28] MEDS: METOPROLOL SUCCINATE XL 100 MG TABLET PO SCH (08:21)
[2018-04-28] MEDS ORDERED: PANTOPRAZOLE 40 MG TABLET PO SCH (09:00)
== END 2018-04-28 09:55 | disposition home or self-care (01) ==
LOC: EDUNIT# → EDBD → N.EDINP 15:45 → N.ED 15:45 → N.ICU 18:39
PROVIDERS: ADMIT Surgery; ATTEND Surgery